=== PATIENT | female | born 1965 | race Hispanic/Latino ===

== ENCOUNTER 2021-04-24 14:38 | Inpatient (IN) | payer OTHER ==
[2021-04-24] MEDS ORDERED: dexAMETHasone 4 MG/ML VIAL IV ONE (17:03)
[2021-04-24] MEDS ORDERED: AZITHROMYCIN/NS 500 MG/250 ML 500 MG/250 ML BAG IV ONE (17:20)
--- NOTE | 2021-04-24 17:25 | XRay Report ---
CHEST 1 VIEW 04/24/2021 5:08 PM INDICATION / CLINICAL INFORMATION: SOB. COMPARISON: None available. FINDINGS: SUPPORT DEVICES: None. HEART / MEDIASTINUM: The heart size and pulmonary vasculature are normal for technique. LUNGS / PLEURA: There are moderate patchy parenchymal opacities throughout both lungs, predominantly in the mid to lower lung zones and more prominent peripherally. No definite pleural effusion. No pneu mothorax. ADDITIONAL FINDINGS: No significant additional findings. IMPRESSION: Moderate patchy peripheral parenchymal opacities bilaterally are nonspecific but likely r elated to atypical causes of pneumonia, especially viral pneumonia. Signer Name: Wilner Lopez MD Signed: 04/24/2021 5:21 PM Workstation Name: [id number]
[2021-04-24] MEDS ORDERED: SODIUM CHLORIDE 0.9% 1000 ML 1,000 ML IV ONE (17:41)
[2021-04-24] MEDS ORDERED: LORazepam 2 MG/ML VIAL IV ONE (17:42)
--- NOTE | 2021-04-24 17:49 | Emergency Department Report ---
HPI - General Chief Complaint: Dyspnea/Respdistress Time Seen by Provider: 04/24/21 16:59 - HPI HPI: 56-year-old female presents to the emergency department from home with complaint of a 2-week history of shortness of breath, mixed dry and productive cough, generalized weakness, fatigue and the patient is COVID-positive. Patient says that over the past few days she has been getting increased shortness of breath and dizziness/lightheadedness when she stands up. She has a history of COPD but is not oxygen dependent at home. She is a former smoker. The patient was found to have a room air oxygen saturation of 85%. She has been placed on supplemental oxygen at 4 L by nasal cannula and went up to about 95%. She has not taken anything for symptoms prior to presentation today. ED Past Medical Hx - Past Medical History Additional medical history: genital HERPES - Surgical History Additional Surgical History: stomach ulcer surgery,hernia surgery - Social History Smoking Status: Current Every Day Smoker Substance Use Type: None - Medications Home Medications: Home Medications Medication Instructions Recorded Confirmed Last Taken Type Valtrex 1 tab PO BID 01/15/15 01/15/15 01/14/15 History Ciprofloxacin HCl [Ciprofloxacin 500 mg PO Q12HR #20 tab 01/16/15 Unknown Rx TAB] Ondansetron [Zofran TAB] 4 mg PO Q8HR PRN #15 tablet 01/16/15 Unknown Rx Phenazopyridine [Pyridium] 100 mg PO TID PRN #6 tab 01/16/15 Unknown Rx ED Review of Systems ROS: Stated complaint: covid symptoms Other details as noted in HPI Comment: All other systems reviewed and negative Constitutional: chills, weakness Eyes: denies: eye pain, vision change ENT: denies: ear pain, throat pain Respiratory: cough, shortness of breath, SOB with exertion Cardiovascular: denies: chest pain, edema Gastrointestinal: denies: abdominal pain, vomiting Genitourinary: denies: dysuria, discharge Musculoskeletal: myalgia. denies: joint swelling Skin: denies: rash Neurological: other (Dizziness/lightheaded). denies: numbness, paresthesias Physical Exam - Physical Exam Vital Signs: Vital Signs 04/24/21 04/24/21 16:24 17:28 Temperature 97.8 F Pulse Rate 91 H Respiratory 16 Rate Blood Pressure 124/79 [Left] O2 Sat by Pulse 85 95 Oximetry Physical Exam: GENERAL: The patient is well-developed well-nourished. HENT: Normocephalic. Atraumatic. Patient has moist mucous membranes. EYES: Extraocular motions are intact. NECK: Supple. Trachea is midline. CHEST/LUNGS: Rhonchi heard bilaterally. There is tachypnea with some conversational dyspnea. HEART/CARDIOVASCULAR: Regular. There is mild tachycardia. There is no murmur. ABDOMEN: Abdomen is soft, nontender. Patient has normal bowel sounds. There is no abdominal distention. SKIN: Skin is warm and dry. NEURO: The patient is awake, alert, and cooperative. Normal speech. MUSCULOSKELETAL: There is no tenderness or deformity. There is no limitation range of motion. ED Course Vital Signs 04/24/21 04/24/21 16:24 17:28 Temperature 97.8 F Pulse Rate 91 H Respiratory 16 Rate Blood Pressure 124/79 [Left] O2 Sat by Pulse 85 95 Oximetry ED Medical Decision Making - Lab Data Result diagrams: 04/24/21 17:32 04/24/21 17:32 Lab Results 04/24/21 04/24/21 04/24/21 Range/Units 17:32 17:32 17:32 WBC 7.2 (4.5-11.0) K/mm3 RBC 3.40 L (3.65-5.03) M/mm3 Hgb 11.4 (10.1-14.3) gm/dl Hct 35.2 (30.3-42.9) % MCV 104 H (79-97) fl MCH 34 H (28-32) pg MCHC 33 (30-34) % RDW 14.0 (13.2-15.2) % Plt Count 438 (140-440) K/mm3 Lymph % (Auto) 17.1 (13.4-35.0) % [place] % (Auto) 4.1 (0.0-7.3) % Eos % (Auto) 1.1 (0.0-4.3) % Baso % (Auto) 0.8 (0.0-1.8) % Lymph # (Auto) 1.2 (1.2-5.4) K/mm3 [place] # (Auto) 0.3 (0.0-0.8) K/mm3 Eos # (Auto) 0.1 (0.0-0.4) K/mm3 Baso # (Auto) 0.1 (0.0-0.1) K/mm3 Seg Neutrophils % 76.9 H (40.0-70.0) % Seg Neutrophils # 5.5 (1.8-7.7) K/mm3 PT 13.5 (12.2-14.9) Sec. INR 0.93 (0.87-1.13) D-Dimer > 37215 H (0-234) ng/mlDDU Sodium 138 (137-145) mmol/L Potassium 3.7 (3.6-5.0) mmol/L Chloride 101.0 (98-107) mmol/L Carbon Dioxide 20 L (22-30) mmol/L Anion Gap 21 mmol/L BUN 17 (7-17) mg/dL Creatinine 1.3 H (0.6-1.2) mg/dL Estimated GFR 43 ml/min BUN/Creatinine Ratio 13 % Glucose 190 H (65-100) mg/dL Calcium 9.3 (8.4-10.2) mg/dL Ferritin (10.0-200.0) ng/mL Total Bilirubin 0.40 (0.1-1.2) mg/dL AST 33 (5-40) units/L ALT 72 H (7-56) units/L Alkaline Phosphatase 95 (35-129) units/L Lactate Dehydrogenase (91-180) units/L Troponin T < 0.010 (0.00-0.029) ng/mL C-Reactive Protein (0.00-1.30) mg/dL Total Protein 7.7 (6.3-8.2) g/dL Albumin 3.0 L (3.9-5) g/dL Albumin/Globulin Ratio 0.6 % 04/24/21 04/24/21 Range/Units 17:32 17:32 WBC (4.5-11.0) K/mm3 RBC (3.65-5.03) M/mm3 Hgb (10.1-14.3) gm/dl Hct (30.3-42.9) % MCV (79-97) fl MCH (28-32) pg MCHC (30-34) % RDW (13.2-15.2) % Plt Count (140-440) K/mm3 Lymph % (Auto) (13.4-35.0) % [place] % (Auto) (0.0-7.3) % Eos % (Auto) (0.0-4.3) % Baso % (Auto) (0.0-1.8) % Lymph # (Auto) (1.2-5.4) K/mm3 [place] # (Auto) (0.0-0.8) K/mm3 Eos # (Auto) (0.0-0.4) K/mm3 Baso # (Auto) (0.0-0.1) K/mm3 Seg Neutrophils % (40.0-70.0) % Seg Neutrophils # (1.8-7.7) K/mm3 PT (12.2-14.9) Sec. INR (0.87-1.13) D-Dimer (0-234) ng/mlDDU Sodium (137-145) mmol/L Potassium (3.6-5.0) mmol/L Chloride (98-107) mmol/L Carbon Dioxide (22-30) mmol/L Anion Gap mmol/L BUN (7-17) mg/dL Creatinine (0.6-1.2) mg/dL Estimated GFR ml/min BUN/Creatinine Ratio % Glucose (65-100) mg/dL Calcium (8.4-10.2) mg/dL Ferritin 380.7 H (10.0-200.0) ng/mL Total Bilirubin (0.1-1.2) mg/dL AST (5-40) units/L ALT (7-56) units/L Alkaline Phosphatase (35-129) units/L Lactate Dehydrogenase 408 H (91-180) units/L Troponin T (0.00-0.029) ng/mL C-Reactive Protein 8.80 H (0.00-1.30) mg/dL Total Protein (6.3-8.2) g/dL Albumin (3.9-5) g/dL Albumin/Globulin Ratio % - EKG Data -: EKG Interpreted by Ok EKG shows normal: sinus rhythm, axis, intervals, QRS complexes, ST-T waves (Nonspecific ST-T waves) Rate: normal - EKG Data When compared to previous EKG there are: previous EKG unavailable Interpretation: other (Sinus rhythm at 90 bpm, normal axis, normal intervals, nonspecific ST-T waves. No ST elevation SD) - Radiology Data Radiology results: image reviewed interpreted by me: Chest x-ray shows bilateral patchy infiltrates concerning for pneumonia. No p neumothorax. No widened mediastinum. - Medical Decision Making This patient presents to the emergency department with increased shortness of breath, dizziness and lightheadedness that worsens when standing up pulse ox of 85%. The patient was brought in and the patient is known to be COVID-positive. She presents to the emergency department with a room air to room #35 and placed on 4 L oxygen via nasal cannula and went up into the mid 90s. Chest x- ray shows bilateral patchy infiltrates consistent with COVID-pneumonia. The patient's labs also appear consistent with COVID as she has elevated inflammatory markers. She has been given a dose of Decadron, IV fluid resuscitation, IV steroids antibiotics. Patient will be admitted to the hospital for further evaluation and treatment and has been accepted for admission by the hospitalist, Dr. Bailon. Critical Care Time: Yes Critical care time in (mins) excluding proc time.: 35 Critical care attestation.: If time is entered above; I have spent that time in minutes in the direct care of this critically ill patient, excluding procedure time. Critical care time spent on this patient in doing her initial evaluation, multiple reevaluations, ordering and interpretation of labs and imaging, IV steroids, supplemental oxygen for her hypoxia, IV antibiotics, IV fluid resuscitation. Critical Care Time: 35 minutes ED Disposition Clinical Impression: COVID-19, Hypoxia Bilateral pneumonia Qualifiers: Pneumonia type: due to unspecified organism Lung location: unspecified part of lung Qualified Code(s): J18.9 - Pneumonia, unspecified organism Disposition: ADMITTED INPATIENT Is pt being admited?: Yes Condition: Serious Time of Disposition: 18:53
[2021-04-24 18:08] LABS: Basophils # (Auto) 0.1 K/mm3 (0.0-0.1); Basophils % (Auto) 0.8 % (0.0-1.8); Eosinophils # (Auto) 0.1 K/mm3 (0.0-0.4); Eosinophils % (Auto) 1.1 % (0.0-4.3); Hematocrit 35.2 % (30.3-42.9); Hemoglobin 11.4 gm/dl (10.1-14.3); Lymphocytes # (Auto) 1.2 K/mm3 (1.2-5.4); Lymphocytes % (Auto) 17.1 % (13.4-35.0); Mean Corpuscular HGB Conc 33 % (30-34); Mean Corpuscular Volume 104 fl (79-97); Monocytes # (Auto) 0.3 K/mm3 (0.0-0.8); Monocytes % (Auto) 4.1 % (0.0-7.3); Platelet Count 438 K/mm3 (140-440)
[2021-04-24 18:17] LABS: INR 0.93 (0.87-1.13)
[2021-04-24 18:29] LABS: Alanine Aminotransferase 72 units/L (7-56); BUN/Creatinine Ratio 13; Blood Urea Nitrogen 17 mg/dL (7-17); C-Reactive Protein 8.8 mg/dL (0.00-1.30); Calcium 9.3 mg/dL (8.4-10.2); Hemolysis Index 0
--- NOTE | 2021-04-24 21:42 | History and Physical Report ---
History of Present Illness Date of examination: 04/24/21 Date of admission: 04/24/21 18:53 Chief complaint: Shortness of breath for 1 week History of present illness: 55-year-old female with history of COPD comes in for 2-week history of shortness of breath and dry cough and generalized weakness and fatigue. Patient is apparently COVID-positive. Patient has been getting short of breath over the past few days and also dizziness and lightheadedness when she stands up. Patient has a history of COPD but not on any home oxygen. Former smoker. In the emergency room initial oxygen saturations were 85% on room air. With 4 L of nasal cannula oxygen saturations improved to 95%. No loss of smell or taste. Patient is unvaccinated. - Past Medical History --COPD --Recurrent genital herpes for which she takes Valtrex intermittently - Surgical History --Endometriosis and diverticulectomy - Social History Smoking Status: Former smoker 6 months ago Substance Use Type: None Family history Htn - Medications Home Medications: Home Medications Medication Instructions Recorded Confirmed Last Taken Type Valtrex 1 tab PO BID 01/15/15 01/15/15 01/14/15 History Ciprofloxacin HCl [Ciprofloxacin 500 mg PO Q12HR #20 tab 01/16/15 Unknown Rx TAB] Ondansetron [Zofran TAB] 4 mg PO Q8HR PRN #15 tablet 01/16/15 Unknown Rx Phenazopyridine [Pyridium] 100 mg PO TID PRN #6 tab 01/16/15 Unknown Rx Review of Systems ROS: Stated complaint: covid symptoms Other details as noted in HPI Comment: All other systems reviewed and negative Constitutional: chills, weakness Eyes: denies: eye pain, vision change ENT: denies: ear pain, throat pain Respiratory: cough, shortness of breath, SOB with exertion Cardiovascular: denies: chest pain, edema Gastrointestinal: denies: abdominal pain, vomiting Genitourinary: denies: dysuria, discharge Musculoskeletal: myalgia. denies: joint swelling Skin: denies: rash Neurological: other (Dizziness/lightheaded). denies: numbness, paresthesias Medications and Allergies Allergies Allergy/AdvReac Type Severity Reaction Status Date / Time cephalexin Allergy Anaphylaxis Verified 01/15/15 20:20 Sulfa (Sulfonamide Allergy Rash Verified 01/15/15 20:20 Antibiotics) Home Medications Medication Instructions Recorded Confirmed Last Taken Type Valtrex 1 tab PO BID 01/15/15 01/15/15 01/14/15 History Ciprofloxacin HCl [Ciprofloxacin 500 mg PO Q12HR #20 tab 01/16/15 Unknown Rx TAB] Ondansetron [Zofran TAB] 4 mg PO Q8HR PRN #15 tablet 01/16/15 Unknown Rx Phenazopyridine [Pyridium] 100 mg PO TID PRN #6 tab 01/16/15 Unknown Rx Active Meds: Active Medications Sodium Chloride (Nacl 0.9% 1000 Ml) 1,000 mls @ 125 mls/hr IV ONCE ONE Stop: 04/25/21 01:40 Last Admin: 04/24/21 18:14 Dose: 125 mls/hr Exam - Constitutional Vitals: Temp Pulse Resp BP Pulse Ox 98.7 F 89 30 H 128/80 91 04/24/21 18:00 04/24/21 19:15 04/24/21 19:15 04/24/21 19:15 04/24/21 19:15 General appearance: Present: mild distress, well-nourished - EENT Eyes: Present: PERRL ENT: hearing intact, clear oral mucosa - Neck Neck: Present: supple, normal ROM - Respiratory Respiratory effort: normal Respiratory: bilateral: CTA, rhonchi (Scattered) - Cardiovascular Heart rate: 88 Rhythm: regular Heart Sounds: Present: S1 & S2. Absent: rub, click - Extremities Extremities: pulses symmetrical, No edema Peripheral Pulses: within normal limits - Abdominal General gastrointestinal: Present: soft, non-tender, non-distended, normal bowel sounds Female genitourinary: Present: normal - Integumentary Integumentary: Present: clear, warm, dry - Musculoskeletal Musculoskeletal: gait normal, strength equal bilaterally - Psychiatric Psychiatric: appropriate mood/affect, intact judgment & insight - Neurologic Neurologic: CNII-XII intact, moves all extremities - Allied Health Allied health notes reviewed: nursing, case management HEART Score - HEART Score Troponin: Troponin T < 0.010 ng/mL (0.00-0.029) 04/24/21 17:32 Results - Labs CBC & Chem 7: 04/25/21 04:44 04/25/21 04:44 Labs: Laboratory Last Values WBC 7.2 K/mm3 (4.5-11.0) 04/24/21: RBC 3.40 M/mm3 (3.65-5.03) L 04/24/21: Hgb 11.4 gm/dl (10.1-14.3) 04/24/21: Hct 35.2 % (30.3-42.9) 04/24/21: MCV 104 fl (79-97) H 04/24/21: MCH 34 pg (28-32) H 04/24/21: MCHC 33 % (30-34) 04/24/21: RDW 14.0 % (13.2-15.2) 04/24/21: Plt Count 438 K/mm3 (140-440) 04/24/21: Lymph % (Auto) 17.1 % (13.4-35.0) 04/24/21: [place] % (Auto) 4.1 % (0.0-7.3) 04/24/21: Eos % (Auto) 1.1 % (0.0-4.3) 04/24/21: Baso % (Auto) 0.8 % (0.0-1.8) 04/24/21: Lymph # (Auto) 1.2 K/mm3 (1.2-5.4) 04/24/21: [place] # (Auto) 0.3 K/mm3 (0.0-0.8) 04/24/21: Eos # (Auto) 0.1 K/mm3 (0.0-0.4) 04/24/21: Baso # (Auto) 0.1 K/mm3 (0.0-0.1) 04/24/21: Seg Neutrophils % 76.9 % (40.0-70.0) H 04/24/21: Seg Neutrophils # 5.5 K/mm3 (1.8-7.7) 04/24/21: PT 13.5 Sec. (12.2-14.9) 04/24/21: INR 0.93 (0.87-1.13) 04/24/21: D-Dimer > 09794 ng/mlDDU (0-234) H 04/24/21 17:32 Sodium 138 mmol/L (137-145) 04/24/21 17:32 Potassium 3.7 mmol/L (3.6-5.0) 04/24/21 17:32 Chloride 101.0 mmol/L (98-107) 04/24/21 17:32 Carbon Dioxide 20 mmol/L (22-30) L 04/24/21 17:32 Anion Gap 21 mmol/L 04/24/21 17:32 BUN 17 mg/dL (7-17) 04/24/21 17:32 Creatinine 1.3 mg/dL (0.6-1.2) H 04/24/21 17:32 Estimated GFR 43 ml/min 04/24/21 17:32 BUN/Creatinine Ratio 13 % 04/24/21 17:32 Glucose 190 mg/dL (65-100) H 04/24/21 17:32 Calcium 9.3 mg/dL (8.4-10.2) 04/24/21 17:32 Ferritin 380.7 ng/mL (10.0-200.0) H 04/24/21 17:32 Total Bilirubin 0.40 mg/dL (0.1-1.2) 04/24/21 17:32 AST 33 units/L (5-40) 04/24/21 17:32 ALT 72 units/L (7-56) H 04/24/21 17:32 Alkaline Phosphatase 95 units/L (35-129) 04/24/21 17:32 Lactate Dehydrogenase 408 units/L (91-180) H 04/24/21 17:32 Troponin T < 0.010 ng/mL (0.00-0.029) 04/24/21 17:32 C-Reactive Protein 8.80 mg/dL (0.00-1.30) H 04/24/21 17:32 Total Protein 7.7 g/dL (6.3-8.2) 04/24/21 17:32 Albumin 3.0 g/dL (3.9-5) L 04/24/21 17:32 Albumin/Globulin Ratio 0.6 % 04/24/21 17:32 Microbiology: Microbiology 04/24/21 18:05 Peripheral/Venous Blood Culture - Preliminary Culture in Progress 04/24/21 17:32 Peripheral/Venous Blood Culture - Preliminary Culture in Progress - Imaging and Cardiology Chest x-ray: report reviewed Imaging and Cardiology: Chest x-ray Moderate patchy peripheral parenchymal opacities bilaterally are nonspecific but likely related to atypical causes of pneumonia especially viral pneumonia Assessment and Plan Advance Directives: Yes (Full code) VTE prophylaxis?: Chemical Plan of care discussed with patient/family: Yes - Patient Problems (1) Acute respiratory failure with hypoxia Current Visit: Yes Status: Acute Plan to address problem: Oxygen supplementation as necessary Patient on 4 L nasal cannula oxygen Respiratory therapy assessment and increased oxygen decrease oxygen as necessary (2) SIRS (systemic inflammatory response syndrome) Current Visit: Yes Status: Acute Plan to address problem: All inflammatory markers are elevated (3) Bilateral pneumonia Current Visit: Yes Status: Acute Qualifiers: Pneumonia type: due to unspecified organism Lung location: unspecified part of lung Qualified Code(s): J18.9 - Pneumonia, unspecified organism Plan to address problem: Patient initiated on IV ceftriaxone and IV Zithromax Also IV Decadron for possible COVID-pneumonia (4) Person under investigation for COVID-19 Current Visit: Yes Status: Acute Plan to address problem: Coronavirus PCR in a.m. IV Decadron 8 mg every 24 (5) MARTINA (acute kidney injury) Current Visit: Yes Status: Acute Plan to address problem: IV fluids for now Vasomotor nephropathy (6) COPD (chronic obstructive pulmonary disease) Current Visit: Yes Status: Chronic Qualifiers: Emphysema type: unspecified Plan to address problem: Not in exacerbation Combivent inhaler 2 puffs twice daily (7) Malnutrition Current Visit: Yes Status: Chronic Qualifiers: Protein-calorie malnutrition severity: moderate Plan to address problem: Patient initiated on dietary supplements (8) DVT prophylaxis Current Visit: Yes Status: Acute Plan to address problem: On anticoagulation GI prophylaxis (9) Advance care planning Current Visit: Yes Status: Acute Plan to address problem: Disease education conducted, care plan discussed, diagnosis discussed, prognosis discussed. Patient is full code. Patient acknowledges understanding and agreement with care plan. +30 minutes.
[2021-04-24] MEDS ORDERED: ONDANSETRON 4 MG/2 ML INJ IV PRN (21:47)
[2021-04-24] MEDS ORDERED: ACETAMINOPHEN 325 MG TAB PO PRN (21:47)
[2021-04-24] MEDS ORDERED: METOCLOPRAMIDE 10 MG/2 ML INJ IV PRN (21:49)
[2021-04-24] MEDS ORDERED: MORPHINE 2 MG/1 ML INJ IV PRN (21:49)
[2021-04-24] MEDS ORDERED: SODIUM CHLORIDE 0.9% 1000 ML 1,000 ML IV SCH (22:00)
[2021-04-25] MEDS: ENOXAPARIN 40 MG/0.4 ML INJ SUB-Q SCH ×2 (04:35→10:16)
[2021-04-25] MEDS: FAMOTIDINE 20 MG TAB PO SCH ×3 (04:35→23:24)
[2021-04-25] MEDS: cefTRIAXone/NS 2 GM/100 ML 2 GM/100 ML BAG IV SCH ×2 (04:35→10:03)
[2021-04-25 05:33] LABS: Basophils % (Auto) 0.5 % (0.0-1.8); Hematocrit 36.6 % (30.3-42.9); Lymphocytes # (Auto) 1.2 K/mm3 (1.2-5.4); Lymphocytes % (Auto) 13.5 % (13.4-35.0); Mean Corpuscular HGB Conc 33 % (30-34); Mean Corpuscular Volume 104 fl (79-97); Monocytes # (Auto) 0.4 K/mm3 (0.0-0.8); Platelet Count 475 K/mm3 (140-440); Red Blood Count 3.53 M/mm3 (3.65-5.03)
[2021-04-25 05:51] LABS: Albumin 3.4 g/dL (3.9-5); Calcium 9.3 mg/dL (8.4-10.2)
[2021-04-25] MEDS ORDERED: AZITHROMYCIN/NS 500 MG/250 ML 500 MG/250 ML BAG IV SCH (10:00)
[2021-04-25] MEDS: dexAMETHasone 4 MG/ML VIAL IV SCH (10:02)
--- NOTE | 2021-04-25 10:02 | Electrocardiograph Report ---
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
[2021-04-25] MEDS: TIOTROPIUM 18 MCG CAP INHALATION IH SCH (10:03)
[2021-04-25] MEDS: AZITHROMYCIN 250 MG TAB PO SCH (10:03)
[2021-04-25] MEDS ORDERED: LORazepam 2 MG/ML VIAL IV PRN (16:18)
--- NOTE | 2021-04-25 22:29 | Progress Note ---
Assessment and Plan - Patient Problems (1) Acute respiratory failure with hypoxia Current Visit: Yes Status: Acute Plan to address problem: Oxygen supplementation as necessary Patient on 4 L nasal cannula oxygen Respiratory therapy assessment and increased oxygen decrease oxygen as necessary (2) SIRS (systemic inflammatory response syndrome) Current Visit: Yes Status: Acute Plan to address problem: All inflammatory markers are elevated (3) Bilateral pneumonia Current Visit: Yes Status: Acute Qualifiers: Pneumonia type: due to unspecified organism Lung location: unspecified part of lung Qualified Code(s): J18.9 - Pneumonia, unspecified organism Plan to address problem: Patient is COVID-negative, Continue IV antibiotics (4) Person under investigation for COVID-19 Current Visit: Yes Status: Acute Plan to address problem: COVID-negative (5) MARTINA (acute kidney injury) Current Visit: Yes Status: Acute Plan to address problem: Improved (6) COPD (chronic obstructive pulmonary disease) Current Visit: Yes Status: Chronic Qualifiers: Emphysema type: unspecified Plan to address problem: Not in exacerbation Combivent inhaler 2 puffs twice daily (7) Malnutrition Current Visit: Yes Status: Chronic Qualifiers: Protein-calorie malnutrition severity: moderate Plan to address problem: Patient initiated on dietary supplements (8) DVT prophylaxis Current Visit: Yes Status: Acute Plan to address problem: On anticoagulation GI prophylaxis (9) Advance care planning Current Visit: Yes Status: Acute Plan to address problem: Disease education conducted, care plan discussed, diagnosis discussed, prognosis discussed. Patient is full code. Patient acknowledges understanding and agreement with care plan. +30 minutes. Subjective Date of service: 04/25/21 Principal diagnosis: Bilateral pneumonia Interval history: 55-year-old female with history of COPD comes in for 2-week history of shortness of breath and dry cough and generalized weakness and fatigue. Patient is apparently COVID-positive. Patient has been getting short of breath over the past few days and also dizziness and lightheadedness when she stands up. Patient has a history of COPD but not on any home oxygen. Former smoker. In the emergency room initial oxygen saturations were 85% on room air. With 4 L of nasal cannula oxygen saturations improved to 95%. No loss of smell or taste. Patient is unvaccinated. April 25, 2021 Patient is COVID-negative Shortness of breath better Objective - Constitutional Vitals: Vital Signs - 12hr 0104/25/21 04/25/21 10:30 10:45 11:00 Pulse Rate 73 70 72 Respiratory 20 20 21 Rate Blood Pressure 129/65 129/65 129/65 O2 Sat by Pulse 95 93 95 Oximetry 04/25/21 04/25/21 04/25/21 11:15 11:31 11:49 Pulse Rate 68 68 73 Respiratory 18 18 22 Rate Blood Pressure 134/77 134/77 134/77 O2 Sat by Pulse 97 100 95 Oximetry 04/25/21 04/25/21 04/25/21 12:00 12:15 12:31 Pulse Rate 72 71 74 Respiratory 20 18 19 Rate Blood Pressure 137/63 137/63 137/63 O2 Sat by Pulse 94 95 95 Oximetry 04/25/21 04/25/21 04/25/21 12:45 13:01 13:15 Pulse Rate 73 74 70 Respiratory 15 15 16 Rate Blood Pressure 137/63 123/66 123/66 O2 Sat by Pulse 97 96 97 Oximetry 04/25/21 04/25/21 04/25/21 13:31 13:45 14:01 Pulse Rate 75 74 71 Respiratory 20 20 18 Rate Blood Pressure 123/66 123/66 118/60 O2 Sat by Pulse 94 95 97 Oximetry 04/25/21 04/25/21 04/25/21 14:15 14:31 14:45 Pulse Rate 70 69 72 Respiratory 18 18 20 Rate Blood Pressure 118/60 118/60 118/60 O2 Sat by Pulse 95 97 94 Oximetry 04/25/21 04/25/21 04/25/21 15:01 15:15 15:31 Pulse Rate 73 72 67 Respiratory 21 19 16 Rate Blood Pressure 118/74 118/74 118/74 O2 Sat by Pulse 95 95 95 Oximetry 04/25/21 04/25/21 04/25/21 15:45 16:03 16:15 Pulse Rate 68 67 Respiratory 20 22 Rate Blood Pressure 118/74 118/74 118/74 O2 Sat by Pulse 97 88 93 Oximetry 04/25/21 04/25/21 16:31 16:45 Pulse Rate 75 70 Respiratory 23 18 Rate Blood Pressure 118/74 118/74 O2 Sat by Pulse 94 96 Oximetry General appearance: Present: no acute distress, well-nourished - EENT Eyes: PERRL, EOM intact ENT: hearing intact, clear oral mucosa Ears: bilateral: normal - Neck Neck: supple, normal ROM - Respiratory Respiratory effort: normal Respiratory: bilateral: diminished, rhonchi, wheezing - Breasts Breasts: normal - Cardiovascular Heart rate: 78 Rhythm: regular Heart Sounds: Present: S1 & S2. Absent: gallop, rub Extremities: pulses intact, No edema, normal color, Full ROM - Gastrointestinal General gastrointestinal: Present: soft, non-tender, non-distended, normal bowel sounds - Genitourinary Female genitourinary: normal - Integumentary Integumentary: clear, warm, dry - Musculoskeletal Musculoskeletal: 1, strength equal bilaterally - Neurologic Neurologic: moves all extremities - Psychiatric Psychiatric: memory intact, appropriate mood/affect, intact judgment & insight - Labs CBC & Chem 7: 04/25/21 04:44 04/25/21 04:44 Labs: Abnormal lab results 04/25/21 04/25/21 Range/Units 04:44 04:44 RBC 3.53 L (3.65-5.03) M/mm3 MCV 104 H (79-97) fl MCH 34 H (28-32) pg Plt Count 475 H (140-440) K/mm3 Seg Neutrophils % 82.0 H (40.0-70.0) % Potassium 5.3 H D (3.6-5.0) mmol/L BUN 18 H (7-17) mg/dL Glucose 176 H (65-100) mg/dL ALT 72 H (7-56) units/L Albumin 3.4 L (3.9-5) g/dL HEART Score - HEART Score Troponin: Troponin T < 0.010 ng/mL (0.00-0.029) 04/24/21 17:32
[2021-04-25] MEDS ORDERED: CALCIUM GLUCONATE 2,000 MG in SODIUM CHLORIDE 0.9% 100 ML IV ONE (23:32)
[2021-04-26] MEDS: cefTRIAXone/NS 2 GM/100 ML 2 GM/100 ML BAG IV SCH (09:53)
[2021-04-26] MEDS: dexAMETHasone 4 MG/ML VIAL IV SCH (09:53)
[2021-04-26] MEDS: AZITHROMYCIN 250 MG TAB PO SCH (09:54)
[2021-04-26] MEDS: FAMOTIDINE 20 MG TAB PO SCH ×2 (09:54→22:06)
[2021-04-26] MEDS: oxyCODONE /ACETAMINOPHEN 5-325MG TAB PO PRN (11:01)
[2021-04-26] MEDS ORDERED: PNEUMOCOCCAL 23 Valent 0.5 ML VIAL IM ONE (13:00)
[2021-04-26] MEDS: TIOTROPIUM 18 MCG CAP INHALATION IH SCH (17:36)
[2021-04-26] MEDS ORDERED: traZODone 100 MG TAB PO ONE (22:28)
--- NOTE | 2021-04-27 00:10 | Progress Note ---
Assessment and Plan - Patient Problems (1) Acute respiratory failure with hypoxia Current Visit: Yes Status: Acute Plan to address problem: Oxygen supplementation as necessary Patient on 4 L nasal cannula oxygen Respiratory therapy assessment and increased oxygen decrease oxygen as necessary (2) SIRS (systemic inflammatory response syndrome) Current Visit: Yes Status: Acute Plan to address problem: All inflammatory markers are elevated (3) Bilateral pneumonia Current Visit: Yes Status: Acute Qualifiers: Pneumonia type: due to unspecified organism Lung location: unspecified part of lung Qualified Code(s): J18.9 - Pneumonia, unspecified organism Plan to address problem: Patient is COVID-negative, Continue IV antibiotics (4) Person under investigation for COVID-19 Current Visit: Yes Status: Acute Plan to address problem: COVID-negative (5) MARTINA (acute kidney injury) Current Visit: Yes Status: Acute Plan to address problem: Improved (6) COPD (chronic obstructive pulmonary disease) Current Visit: Yes Status: Chronic Qualifiers: Emphysema type: unspecified Plan to address problem: Not in exacerbation Combivent inhaler 2 puffs twice daily (7) Malnutrition Current Visit: Yes Status: Chronic Qualifiers: Protein-calorie malnutrition severity: moderate Plan to address problem: Patient initiated on dietary supplements (8) DVT prophylaxis Current Visit: Yes Status: Acute Plan to address problem: On anticoagulation GI prophylaxis (9) Advance care planning Current Visit: Yes Status: Acute Plan to address problem: Disease education conducted, care plan discussed, diagnosis discussed, prognosis discussed. Patient is full code. Patient acknowledges understanding and agreement with care plan. +30 minutes. Subjective Date of service: 04/26/21 Principal diagnosis: Bilateral pneumonia Interval history: 55-year-old female with history of COPD comes in for 2-week history of shortness of breath and dry cough and generalized weakness and fatigue. Patient is apparently COVID-positive. Patient has been getting short of breath over the past few days and also dizziness and lightheadedness when she stands up. Patient has a history of COPD but not on any home oxygen. Former smoker. In the emergency room initial oxygen saturations were 85% on room air. With 4 L of nasal cannula oxygen saturations improved to 95%. No loss of smell or taste. Patient is unvaccinated. April 25, 2021 Patient is COVID-negative Shortness of breath better Objective - Constitutional Vitals: Vital Signs - 12hr 0104/26/21 04/26/21 12:11 12:21 12:22 Temperature Pulse Rate Respiratory 21 Rate Blood Pressure 124/63 124/63 Blood Pressure [Left] O2 Sat by Pulse 97 97 92 Oximetry 04/26/21 04/26/21 04/26/21 12:31 12:41 12:51 Temperature Pulse Rate Respiratory Rate Blood Pressure 124/63 124/63 124/63 Blood Pressure [Left] O2 Sat by Pulse 84 88 95 Oximetry 04/26/21 04/26/21 04/26/21 13:01 13:11 13:21 Temperature Pulse Rate Respiratory Rate Blood Pressure 124/63 124/63 124/63 Blood Pressure [Left] O2 Sat by Pulse 96 97 97 Oximetry 04/26/21 04/26/21 04/26/21 13:31 13:41 13:51 Temperature Pulse Rate Respiratory Rate Blood Pressure 124/63 124/63 124/63 Blood Pressure [Left] O2 Sat by Pulse 96 96 96 Oximetry 04/26/21 04/26/21 04/26/21 14:01 14:11 14:21 Temperature Pulse Rate Respiratory Rate Blood Pressure 124/63 124/63 124/63 Blood Pressure [Left] O2 Sat by Pulse 95 96 94 Oximetry 04/26/21 04/26/21 04/26/21 14:31 14:41 14:51 Temperature Pulse Rate Respiratory Rate Blood Pressure 124/63 124/63 124/63 Blood Pressure [Left] O2 Sat by Pulse 95 93 94 Oximetry 04/26/21 04/26/21 04/26/21 15:01 15:11 15:21 Temperature Pulse Rate Respiratory Rate Blood Pressure 124/63 124/63 124/63 Blood Pressure [Left] O2 Sat by Pulse 94 92 93 Oximetry 04/26/21 04/26/21 04/26/21 15:31 15:40 15:51 Temperature Pulse Rate Respiratory Rate Blood Pressure 124/63 124/63 124/63 Blood Pressure [Left] O2 Sat by Pulse 96 92 98 Oximetry 04/26/21 04/26/21 04/26/21 16:01 16:11 16:21 Temperature Pulse Rate Respiratory Rate Blood Pressure 124/63 124/63 124/63 Blood Pressure [Left] O2 Sat by Pulse 97 95 94 Oximetry 04/26/21 04/26/21 04/26/21 16:31 16:41 16:51 Temperature Pulse Rate Respiratory Rate Blood Pressure 124/63 124/63 124/63 Blood Pressure [Left] O2 Sat by Pulse 95 97 90 Oximetry 04/26/21 04/26/21 04/26/21 17:55 18:01 18:11 Temperature Pulse Rate Respiratory Rate Blood Pressure 124/63 124/63 124/63 Blood Pressure [Left] O2 Sat by Pulse 94 96 98 Oximetry 04/26/21 04/26/21 04/26/21 18:21 18:31 18:41 Temperature Pulse Rate Respiratory Rate Blood Pressure 124/63 124/63 124/63 Blood Pressure [Left] O2 Sat by Pulse 98 97 99 Oximetry 04/26/21 04/26/21 04/26/21 18:51 19:01 19:12 Temperature Pulse Rate Respiratory Rate Blood Pressure 124/63 124/63 124/63 Blood Pressure [Left] O2 Sat by Pulse 94 91 82 L Oximetry 04/26/21 04/26/21 04/26/21 19:13 19:21 19:31 Temperature Pulse Rate 55 L Respiratory 18 Rate Blood Pressure 124/63 124/63 Blood Pressure 155/82 [Left] O2 Sat by Pulse 92 92 94 Oximetry 04/26/21 04/26/21 04/26/21 19:41 19:51 20:01 Temperature Pulse Rate Respiratory Rate Blood Pressure 124/63 124/63 124/63 Blood Pressure [Left] O2 Sat by Pulse 93 91 93 Oximetry 04/26/21 04/26/21 04/26/21 20:11 20:21 20:31 Temperature Pulse Rate Respiratory Rate Blood Pressure 124/63 124/63 124/63 Blood Pressure [Left] O2 Sat by Pulse 95 95 94 Oximetry 04/26/21 04/26/21 21:02 22:37 Temperature 97.5 F L Pulse Rate 70 Respiratory 20 18 Rate Blood Pressure 132/77 Blood Pressure [Left] O2 Sat by Pulse 91 93 Oximetry General appearance: Present: no acute distress, well-nourished - EENT Eyes: PERRL, EOM intact ENT: hearing intact, clear oral mucosa Ears: bilateral: normal - Neck Neck: supple, normal ROM - Respiratory Respiratory effort: normal Respiratory: bilateral: CTA - Breasts Breasts: normal - Cardiovascular Rhythm: regular Heart Sounds: Present: S1 & S2. Absent: gallop, rub Extremities: pulses intact, No edema, normal color, Full ROM - Gastrointestinal General gastrointestinal: Present: soft, non-tender, non-distended, normal bowel sounds - Genitourinary Female genitourinary: normal - Integumentary Integumentary: clear, warm, dry - Musculoskeletal Musculoskeletal: 1, strength equal bilaterally - Neurologic Neurologic: moves all extremities - Psychiatric Psychiatric: memory intact, appropriate mood/affect, intact judgment & insight - Labs CBC & Chem 7: 04/25/21 04:44 04/25/21 04:44 HEART Score - HEART Score Troponin: Troponin T < 0.010 ng/mL (0.00-0.029) 04/24/21 17:32
[2021-04-27] MEDS: TIOTROPIUM 18 MCG CAP INHALATION IH SCH (09:14)
[2021-04-27] MEDS: DEXAMETHASONE 4 MG TAB PO SCH (10:32)
[2021-04-27] MEDS: cefTRIAXone/NS 2 GM/100 ML 2 GM/100 ML BAG IV SCH (12:19)
[2021-04-27] MEDS: AZITHROMYCIN 250 MG TAB PO SCH (12:19)
[2021-04-27] MEDS: FAMOTIDINE 20 MG TAB PO SCH ×2 (12:20→21:32)
[2021-04-27] MEDS: ENOXAPARIN 40 MG/0.4 ML INJ SUB-Q SCH (12:20)
[2021-04-27] MEDS: oxyCODONE /ACETAMINOPHEN 5-325MG TAB PO PRN (12:22)
[2021-04-27] MEDS: LORazepam 2 MG/ML VIAL IV PRN ×2 (17:32→23:59)
--- NOTE | 2021-04-28 07:49 | Progress Note ---
Assessment and Plan - Patient Problems (1) Acute respiratory failure with hypoxia Current Visit: Yes Status: Acute Plan to address problem: Oxygen supplementation as necessary Patient on 4 L nasal cannula oxygen Respiratory therapy assessment and increased oxygen decrease oxygen as necessary (2) SIRS (systemic inflammatory response syndrome) Current Visit: Yes Status: Acute Plan to address problem: All inflammatory markers are elevated (3) Bilateral pneumonia Current Visit: Yes Status: Acute Qualifiers: Pneumonia type: due to unspecified organism Lung location: unspecified part of lung Qualified Code(s): J18.9 - Pneumonia, unspecified organism Plan to address problem: Patient is COVID-negative, Continue IV antibiotics (4) Person under investigation for COVID-19 Current Visit: Yes Status: Acute Plan to address problem: COVID-negative (5) MARTINA (acute kidney injury) Current Visit: Yes Status: Acute Plan to address problem: Improved (6) COPD (chronic obstructive pulmonary disease) Current Visit: Yes Status: Chronic Qualifiers: Emphysema type: unspecified Plan to address problem: Not in exacerbation Combivent inhaler 2 puffs twice daily (7) Malnutrition Current Visit: Yes Status: Chronic Qualifiers: Protein-calorie malnutrition severity: moderate Plan to address problem: Patient initiated on dietary supplements (8) DVT prophylaxis Current Visit: Yes Status: Acute Plan to address problem: On anticoagulation GI prophylaxis (9) Advance care planning Current Visit: Yes Status: Acute Plan to address problem: Disease education conducted, care plan discussed, diagnosis discussed, prognosis discussed. Patient is full code. Patient acknowledges understanding and agreement with care plan. +30 minutes. 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 Patient is appar ently COVID-positive. Patient has been getting short of breath over the past few days and also dizziness and lightheadedness when she stands up. Patient has a history of COPD but not on any home oxygen. Former smoker. In the emergency room initial oxygen saturations were 85% on room air. With 4 L of nasal cannula oxygen saturations improved to 95%. No loss of smell or taste. Patient is unva ccinated. April 25, 2021 Patient is COVID-negative Shortness of breath better Objective - Constitutional Vitals: Vital Signs - 12hr 04/27/21 04/27/21 04/27/21 20:00 21:00 22:00 Temperature 97.1 F L Pulse Rate 71 81 Respiratory 22 20 Rate Blood Pressure Blood Pressure 127/80 [Left] O2 Sat by Pulse 92 92 Oximetry 04/27/21 04/28/21 04/28/21 23:26 03:17 04:00 Temperature 97.4 F L 98.1 F Pulse Rate 69 68 Respiratory 18 19 18 Rate Blood Pressure 113/61 103/68 Blood Pressure [Left] O2 Sat by Pulse 94 92 96 Oximetry - Labs CBC & Chem 7: 04/25/21 04:44 04/25/21 04:44 HEART Score - HEART Score Troponin: Troponin T < 0.010 ng/mL (0.00-0.029) 04/24/21 17:32
--- NOTE | 2021-04-28 07:54 | Event Note ---
Date: 04/28/21 Patient can be discharged if home oxygen at 3 L nasal cannula can be arranged Patient will need oxygen for long time Patient has post-COVID syndrome
[2021-04-28] MEDS: TIOTROPIUM 18 MCG CAP INHALATION IH SCH (09:52)
[2021-04-28] MEDS: ENOXAPARIN 40 MG/0.4 ML INJ SUB-Q SCH ×2 (10:32→12:51)
[2021-04-28] MEDS: FAMOTIDINE 20 MG TAB PO SCH ×2 (12:51→21:26)
[2021-04-28] MEDS: cefTRIAXone/NS 2 GM/100 ML 2 GM/100 ML BAG IV SCH (12:51)
[2021-04-28] MEDS: DEXAMETHASONE 4 MG TAB PO SCH (12:51)
[2021-04-28] MEDS: AZITHROMYCIN 250 MG TAB PO SCH (12:52)
[2021-04-28] MEDS: LORazepam 2 MG/ML VIAL IV PRN (21:26)
[2021-04-28] MEDS: oxyCODONE /ACETAMINOPHEN 5-325MG TAB PO PRN (21:26)
[2021-04-29] MEDS: TIOTROPIUM 18 MCG CAP INHALATION IH SCH (09:27)
[2021-04-29] MEDS: DEXAMETHASONE 4 MG TAB PO SCH (12:02)
[2021-04-29] MEDS: FAMOTIDINE 20 MG TAB PO SCH ×2 (12:02→22:14)
[2021-04-29] MEDS: ENOXAPARIN 40 MG/0.4 ML INJ SUB-Q SCH (12:02)
[2021-04-29] MEDS: oxyCODONE /ACETAMINOPHEN 5-325MG TAB PO PRN (12:05)
[2021-04-29] MEDS: LORazepam 2 MG/ML VIAL IV PRN ×2 (17:35→22:14)
--- NOTE | 2021-04-29 23:28 | Progress Note ---
Assessment and Plan - Patient Problems (1) Acute respiratory failure with hypoxia Current Visit: Yes Status: Acute Plan to address problem: Oxygen supplementation as necessary Patient on 4 L nasal cannula oxygen Respiratory therapy assessment and increased oxygen decrease oxygen as necessary (2) SIRS (systemic inflammatory response syndrome) Current Visit: Yes Status: Acute Plan to address problem: All inflammatory markers are elevated (3) Bilateral pneumonia Current Visit: Yes Status: Acute Qualifiers: Pneumonia type: due to unspecified organism Lung location: unspecified part of lung Qualified Code(s): J18.9 - Pneumonia, unspecified organism Plan to address problem: Patient is COVID-negative, Continue IV antibiotics (4) Person under investigation for COVID-19 Current Visit: Yes Status: Acute Plan to address problem: COVID-negative (5) MARTINA (acute kidney injury) Current Visit: Yes Status: Acute Plan to address problem: Improved (6) COPD (chronic obstructive pulmonary disease) Current Visit: Yes Status: Chronic Qualifiers: Emphysema type: unspecified Plan to address problem: Not in exacerbation Combivent inhaler 2 puffs twice daily (7) Malnutrition Current Visit: Yes Status: Chronic Qualifiers: Protein-calorie malnutrition severity: moderate Plan to address problem: Patient initiated on dietary supplements (8) DVT prophylaxis Current Visit: Yes Status: Acute Plan to address problem: On anticoagulation GI prophylaxis (9) Advance care planning Current Visit: Yes Status: Acute Plan to address problem: Disease education conducted, care plan discussed, diagnosis discussed, prognosis discussed. Patient is full code. Patient acknowledges understanding and agreement with care plan. +30 minutes. 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 Patient is appar ently COVID-positive. Patient has been getting short of breath over the past few days and also dizziness and lightheadedness when she stands up. Patient has a history of COPD but not on any home oxygen. Former smoker. In the emergency room initial oxygen saturations were 85% on room air. With 4 L of nasal cannula oxygen saturations improved to 95%. No loss of smell or taste. Patient is unva ccinated. April 25, 2021 Patient is COVID-negative Shortness of breath better Objective - Constitutional Vitals: Vital Signs - 12hr 04/29/21 04/29/21 17:02 19:41 Temperature 98.6 F 98.0 F Pulse Rate 78 82 Respiratory 18 14 Rate Blood Pressure 154/86 104/55 O2 Sat by Pulse 91 92 Oximetry General appearance: Present: no acute distress, well-nourished - EENT Eyes: PERRL, EOM intact ENT: hearing intact, clear oral mucosa Ears: bilateral: normal - Neck Neck: supple, normal ROM - Respiratory Respiratory effort: normal Respiratory: bilateral: CTA - Breasts Breasts: normal - Cardiovascular Rhythm: regular Heart Sounds: Present: S1 & S2. Absent: gallop, rub Extremities: pulses intact, No edema, normal color, Full ROM - Gastrointestinal General gastrointestinal: Present: soft, non-tender, non-distended, normal bowel sounds - Genitourinary Female genitourinary: normal - Integumentary Integumentary: clear, warm, dry - Musculoskeletal Musculoskeletal: 1, strength equal bilaterally - Neurologic Neurologic: moves all extremities - Psychiatric Psychiatric: memory intact, appropriate mood/affect, intact judgment & insight - Labs CBC & Chem 7: 04/25/21 04:44 04/25/21 04:44 HEART Score - HEART Score Troponin: Troponin T < 0.010 ng/mL (0.00-0.029) 04/24/21 17:32
[2021-04-30 06:27] LABS: Basophils # (Auto) 0.1 K/mm3 (0.0-0.1); Basophils % (Auto) 0.9 % (0.0-1.8); Eosinophils % (Auto) 0.3 % (0.0-4.3); Hematocrit 33.9 % (30.3-42.9); Hemoglobin 11.5 gm/dl (10.1-14.3); Lymphocytes # (Auto) 1.2 K/mm3 (1.2-5.4); Lymphocytes % (Auto) 12.7 % (13.4-35.0); Mean Corpuscular HGB Conc 34 % (30-34); Mean Corpuscular Volume 102 fl (79-97); Monocytes # (Auto) 0.5 K/mm3 (0.0-0.8); Monocytes % (Auto) 5.3 % (0.0-7.3); Platelet Count 440 K/mm3 (140-440); Red Blood Count 3.31 M/mm3 (3.65-5.03); Red Cell Distribution Width 13.9 % (13.2-15.2)
[2021-04-30 06:43] LABS: Calcium 8.4 mg/dL (8.4-10.2)
[2021-04-30] MEDS: TIOTROPIUM 18 MCG CAP INHALATION IH SCH (10:18)
[2021-04-30] MEDS: DEXAMETHASONE 4 MG TAB PO SCH (12:45)
[2021-04-30] MEDS: FAMOTIDINE 20 MG TAB PO SCH ×2 (12:46→22:58)
[2021-04-30] MEDS: ENOXAPARIN 40 MG/0.4 ML INJ SUB-Q SCH (12:46)
[2021-04-30] MEDS: oxyCODONE /ACETAMINOPHEN 5-325MG TAB PO PRN (18:38)
[2021-04-30] MEDS: LORazepam 2 MG/ML VIAL IV PRN (22:54)
[2021-05-01] MEDS: oxyCODONE /ACETAMINOPHEN 5-325MG TAB PO PRN ×3 (08:08→21:32)
[2021-05-01] MEDS: TIOTROPIUM 18 MCG CAP INHALATION IH SCH (09:37)
[2021-05-01] MEDS: ENOXAPARIN 40 MG/0.4 ML INJ SUB-Q SCH (09:45)
[2021-05-01] MEDS: LORazepam 2 MG/ML VIAL IV PRN ×2 (09:45→18:16)
[2021-05-01] MEDS: DEXAMETHASONE 4 MG TAB PO SCH (09:45)
[2021-05-01] MEDS: FAMOTIDINE 20 MG TAB PO SCH ×2 (14:54→21:32)
--- NOTE | 2021-05-02 02:25 | Progress Note ---
Assessment and Plan - Patient Problems (1) Acute respiratory failure with hypoxia Current Visit: Yes Status: Acute Plan to address problem: Oxygen supplementation as necessary Patient on 4 L nasal cannula oxygen Respiratory therapy assessment and increased oxygen decrease oxygen as necessary (2) SIRS (systemic inflammatory response syndrome) Current Visit: Yes Status: Acute Plan to address problem: All inflammatory markers are elevated (3) Bilateral pneumonia Current Visit: Yes Status: Acute Qualifiers: Pneumonia type: due to unspecified organism Lung location: unspecified part of lung Qualified Code(s): J18.9 - Pneumonia, unspecified organism Plan to address problem: Patient is COVID-negative, Continue IV antibiotics (4) Person under investigation for COVID-19 Current Visit: Yes Status: Acute Plan to address problem: COVID-negative (5) MARTINA (acute kidney injury) Current Visit: Yes Status: Acute Plan to address problem: Improved (6) COPD (chronic obstructive pulmonary disease) Current Visit: Yes Status: Chronic Qualifiers: Emphysema type: unspecified Plan to address problem: Not in exacerbation Combivent inhaler 2 puffs twice daily (7) Malnutrition Current Visit: Yes Status: Chronic Qualifiers: Protein-calorie malnutrition severity: moderate Plan to address problem: Patient initiated on dietary supplements (8) DVT prophylaxis Current Visit: Yes Status: Acute Plan to address problem: On anticoagulation GI prophylaxis (9) Advance care planning Current Visit: Yes Status: Acute Plan to address problem: Disease education conducted, care plan discussed, diagnosis discussed, prognosis discussed. Patient is full code. Patient acknowledges understanding and agreement with care plan. +30 minutes. (10) Post-COVID syndrome Current Visit: Yes Status: Acute Plan to address problem: Patient needs home oxygen Can be discharged if home oxygen is advanced at 3 L nasal cannula Subjective Date of service: 04/30/21 Principal diagnosis: Bilateral pneumonia Interval history: 55-year-old female with history of COPD comes in for 2-week history of shortness of breath and dry cough and generalized weakness and fatigue. Patient is appar ently COVID-positive. Patient has been getting short of breath over the past few days and also dizziness and lightheadedness when she stands up. Patient has a history of COPD but not on any home oxygen. Former smoker. In the emergency room initial oxygen saturations were 85% on room air. With 4 L of nasal cannula oxygen saturations improved to 95%. No loss of smell or taste. Patient is unva ccinated. April 25, 2021 Patient is COVID-negative Shortness of breath better Objective - Constitutional Vitals: Vital Signs - 12hr 05/01/21 05/01/21 05/02/21 16:48 19:53 00:39 Temperature 97.7 F 97.2 F L 97.8 F Pulse Rate 69 74 65 Respiratory 18 18 18 Rate Blood Pressure 107/55 123/75 125/83 O2 Sat by Pulse 92 92 92 Oximetry General appearance: Present: no acute distress, well-nourished - EENT Eyes: PERRL, EOM intact ENT: hearing intact, clear oral mucosa Ears: bilateral: normal - Neck Neck: supple, normal ROM - Respiratory Respiratory effort: normal Respiratory: bilateral: CTA - Breasts Breasts: normal - Cardiovascular Rhythm: regular Heart Sounds: Present: S1 & S2. Absent: gallop, rub Extremities: pulses intact, No edema, normal color, Full ROM - Gastrointestinal General gastrointestinal: Present: soft, non-tender, non-distended, normal bowel sounds - Genitourinary Female genitourinary: normal - Integumentary Integumentary: clear, warm, dry - Musculoskeletal Musculoskeletal: 1, strength equal bilaterally - Neurologic Neurologic: moves all extremities - Psychiatric Psychiatric: memory intact, appropriate mood/affect, intact judgment & insight - Labs CBC & Chem 7: 04/30/21 06:05 04/30/21 06:05 HEART Score - HEART Score Troponin: Troponin T < 0.010 ng/mL (0.00-0.029) 04/24/21 17:32
[2021-05-02] MEDS: oxyCODONE /ACETAMINOPHEN 5-325MG TAB PO PRN ×3 (06:36→21:43)
[2021-05-02] MEDS: TIOTROPIUM 18 MCG CAP INHALATION IH SCH (08:51)
[2021-05-02] MEDS: FAMOTIDINE 20 MG TAB PO SCH ×2 (10:17→21:42)
[2021-05-02] MEDS: ENOXAPARIN 40 MG/0.4 ML INJ SUB-Q SCH (10:17)
[2021-05-02] MEDS: DEXAMETHASONE 4 MG TAB PO SCH (10:17)
[2021-05-02] MEDS: LORazepam 2 MG/ML VIAL IV PRN ×2 (10:29→21:42)
--- NOTE | 2021-05-03 08:14 | Progress Note ---
Assessment and Plan - Patient Problems (1) Post-COVID syndrome Current Visit: Yes Status: Acute Plan to address problem: Patient needs home oxygen Can be discharged if home oxygen is advanced at 3 L nasal cannula (2) Acute respiratory failure with hypoxia Current Visit: Yes Status: Acute Plan to address problem: Oxygen supplementation as necessary Patient on 4L nasal cannula oxygen Respiratory therapy assessment and increased oxygen decrease oxygen as necessary Patient has post-COVID syndrome Needs home oxygen for at least next 6 months (3) SIRS (systemic inflammatory response syndrome) Current Visit: Yes Status: Acute Plan to address problem: All inflammatory markers are elevated (4) Bilateral pneumonia Current Visit: Yes Status: Acute Qualifiers: Pneumonia type: due to unspecified organism Lung location: unspecified part of lung Qualified Code(s): J18.9 - Pneumonia, unspecified organism Plan to address problem: Patient is COVID-negative, DisContinue IV antibiotics (5) Person under investigation for COVID-19 Current Visit: Yes Status: Acute Plan to address problem: COVID-negative (6) MARTINA (acute kidney injury) Current Visit: Yes Status: Acute Plan to address problem: Improved (7) COPD (chronic obstructive pulmonary disease) Current Visit: Yes Status: Chronic Qualifiers: Emphysema type: unspecified Plan to address problem: Not in exacerbation Combivent inhaler 2 puffs twice daily (8) Malnutrition Current Visit: Yes Status: Chronic Qualifiers: Protein-calorie malnutrition severity: moderate Plan to address problem: Patient initiated on dietary supplements (9) DVT prophylaxis Current Visit: Yes Status: Acute Plan to address problem: On anticoagulation GI prophylaxis (10) Advance care planning Current Visit: Yes Status: Acute Plan to address problem: Disease education conducted, care plan discussed, diagnosis discussed, prognosis discussed. Patient is full code. Patient acknowledges understanding and agreement with care plan. +30 minutes. (11) Discharge planning issues Current Visit: Yes Status: Acute Plan to address problem: Patient can be discharged on 2 L nasal cannula home oxygen actually 2 to 3 L Patient was intubated for home oxygen Discussed with case management Subjective Date of service: 05/02/21 Principal diagnosis: Bilateral pneumonia, respiratory failure with hypoxia Interval history: 55-year-old female with history of COPD comes in for 2-week history of shortness of breath and dry cough and generalized weakness and fatigue. Patient is apparently COVID-positive. Patient has been getting short of breath over the past few days and also dizziness and lightheadedness when she stands up. Patient has a history of COPD but not on any home oxygen. Former smoker. In the emergency room initial oxygen saturations were 85% on room air. With 4 L of nasal cannula oxygen saturations improved to 95%. No loss of smell or taste. Patient is unvaccinated. May 02, 2021 Patient is COVID-negative Shortness of breath better Patient has post-COVID syndrome Needs home oxygen Home oxygen being arranged Decreased oxygen to 2 L today If patient tolerates 2 L patient can be discharged on home oxygen Patient willing to pay for home oxygen Discussed with case management Objective - Constitutional Vitals: Vital Signs - 12hr 05/02/21 05/02/21 05/03/21 22:00 23:36 03:42 Temperature 97.2 F L 97.9 F Pulse Rate 80 68 Respiratory 20 19 Rate Blood Pressure 142/90 143/87 O2 Sat by Pulse 94 89 90 Oximetry General appearance: Present: mild distress, well-nourished - EENT Eyes: PERRL, EOM intact ENT: hearing intact, clear oral mucosa Ears: bilateral: normal - Neck Neck: supple, normal ROM - Respiratory Respiratory effort: normal Respiratory: bilateral: CTA - Breasts Breasts: normal - Cardiovascular Heart rate: 76 Rhythm: regular Heart Sounds: Present: S1 & S2. Absent: gallop, rub Extremities: pulses intact, No edema, normal color, Full ROM - Gastrointestinal General gastrointestinal: Present: soft, non-tender, non-distended, normal bowel sounds - Genitourinary Female genitourinary: normal - Integumentary Integumentary: clear, warm, dry - Musculoskeletal Musculoskeletal: 1, strength equal bilaterally - Neurologic Neurologic: moves all extremities - Psychiatric Psychiatric: memory intact, appropriate mood/affect, intact judgment & insight - Labs CBC & Chem 7: 04/30/21 06:05 04/30/21 06:05 HEART Score - HEART Score Troponin: Troponin T < 0.010 ng/mL (0.00-0.029) 04/24/21 17:32
[2021-05-03] MEDS: oxyCODONE /ACETAMINOPHEN 5-325MG TAB PO PRN ×3 (08:52→21:43)
[2021-05-03] MEDS: LORazepam 2 MG/ML VIAL IV PRN ×3 (09:00→21:43)
[2021-05-03] MEDS: DEXAMETHASONE 4 MG TAB PO SCH (09:00)
[2021-05-03] MEDS: FAMOTIDINE 20 MG TAB PO SCH ×2 (09:00→21:43)
[2021-05-03] MEDS: ENOXAPARIN 40 MG/0.4 ML INJ SUB-Q SCH (09:00)
[2021-05-03] MEDS: TIOTROPIUM 18 MCG CAP INHALATION IH SCH (09:20)
--- NOTE | 2021-05-03 10:57 | Progress Note ---
Assessment and Plan Assessment and plan: Acute hypoxic respiratory failure COVID-19 pneumonia. Patient reportedly with outpatient positive COVID test. Elevated D-dimer Bilateral pneumonia Acute kidney injury. 05/03/2021. Patient with significantly elevated D-dimer. We will check a CTA of the chest. Continue to wean oxygen to potential level of 2 L prior to discharge History Interval history: No new issues overnight. Hospitalist Physical - Constitutional Vitals: Temp Pulse Resp BP Pulse Ox 97.9 F 94 H 18 143/87 93 05/03/21 03:42 05/03/21 09:20 05/03/21 09:20 05/03/21 03:42 05/03/21 08:44 General appearance: Present: mild distress, well-nourished - EENT Eyes: Present: PERRL, EOM intact ENT: hearing intact, clear oral mucosa, dentition normal - Neck Neck: Present: supple, normal ROM - Respiratory Respiratory effort: normal Respiratory: bilateral: CTA - Cardiovascular Rhythm: regular Heart Sounds: Present: S1 & S2. Absent: gallop, rub - Extremities Extremities: no ischemia, No edema, Full ROM - Abdominal General gastrointestinal: soft, non-tender, non-distended, normal bowel sounds - Integumentary Integumentary: Present: clear, warm, dry - Neurologic Neurologic: CNII-XII intact, moves all extremities HEART Score - HEART Score Troponin: Troponin T < 0.010 ng/mL (0.00-0.029) 04/24/21 17:32 Results - Labs CBC & Chem 7: 04/30/21 06:05 04/30/21 06:05 Labs: Laboratory Last Values WBC 9.7 K/mm3 (4.5-11.0) 04/30/21 06:05 RBC 3.31 M/mm3 (3.65-5.03) L 04/30/21 06:05 Hgb 11.5 gm/dl (10.1-14.3) 04/30/21 06:05 Hct 33.9 % (30.3-42.9) 04/30/21 06:05 MCV 102 fl (79-97) H 04/30/21 06:05 MCH 35 pg (28-32) H 04/30/21 06:05 MCHC 34 % (30-34) 04/30/21 06:05 RDW 13.9 % (13.2-15.2) 04/30/21 06:05 Plt Count 440 K/mm3 (140-440) 04/30/21 06:05 Lymph % (Auto) 12.7 % (13.4-35.0) L 04/30/21 06:05 [place] % (Auto) 5.3 % (0.0-7.3) 04/30/21 06:05 Eos % (Auto) 0.3 % (0.0-4.3) 04/30/21 06:05 Baso % (Auto) 0.9 % (0.0-1.8) 04/30/21 06:05 Lymph # (Auto) 1.2 K/mm3 (1.2-5.4) 04/30/21 06:05 [place] # (Auto) 0.5 K/mm3 (0.0-0.8) 04/30/21 06:05 Eos # (Auto) 0.0 K/mm3 (0.0-0.4) 04/30/21 06:05 Baso # (Auto) 0.1 K/mm3 (0.0-0.1) 04/30/21 06:05 Seg Neutrophils % 80.8 % (40.0-70.0) H 04/30/21 06:05 Seg Neutrophils # 7.8 K/mm3 (1.8-7.7) H 04/30/21 06:05 PT 13.5 Sec. (12.2-14.9) 04/24/21 17:32 INR 0.93 (0.87-1.13) 04/24/21 17:32 D-Dimer > 88254 ng/mlDDU (0-234) H 04/24/21 17:32 Sodium 139 mmol/L (137-145) 04/30/21 06:05 Potassium 4.5 mmol/L (3.6-5.0) 04/30/21 06:05 Chloride 106.0 mmol/L (98-107) 04/30/21 06:05 Carbon Dioxide 21 mmol/L (22-30) L 04/30/21 06:05 Anion Gap 17 mmol/L 04/30/21 06:05 BUN 19 mg/dL (7-17) H 04/30/21 06:05 Creatinine 1.0 mg/dL (0.6-1.2) 04/30/21 06:05 Estimated GFR 58 ml/min 04/30/21 06:05 BUN/Creatinine Ratio 19 % 04/30/21 06:05 Glucose 147 mg/dL (65-100) H 04/30/21 06:05 Calcium 8.4 mg/dL (8.4-10.2) 04/30/21 06:05 Ferritin 380.7 ng/mL (10.0-200.0) H 04/24/21 17:32 Total Bilirubin 0.30 mg/dL (0.1-1.2) 04/25/21 04:44 AST 32 units/L (5-40) 04/25/21 04:44 ALT 72 units/L (7-56) H 04/25/21 04:44 Alkaline Phosphatase 99 units/L (35-129) 04/25/21 04:44 Lactate Dehydrogenase 408 units/L (91-180) H 04/24/21 17:32 Troponin T < 0.010 ng/mL (0.00-0.029) 04/24/21 17:32 C-Reactive Protein 8.80 mg/dL (0.00-1.30) H 04/24/21 17:32 Total Protein 7.5 g/dL (6.3-8.2) 04/25/21 04:44 Albumin 3.4 g/dL (3.9-5) L 04/25/21 04:44 Albumin/Globulin Ratio 0.8 % 04/25/21 04:44 Procalcitonin 0.05 ng/mL (<0.15) 04/24/21 17:32 Coronavirus (PCR) Negative (Negative) 04/25/21 Unknown Ruiz/IV: Voiding Method Toilet Active Medications - Current Medications Current Medications: Generic Name Dose Route Start Last Admin Trade Name Freq PRN Reason Stop Dose Admin Acetaminophen 650 mg 04/24/21 21:47 Acetaminophen 325 Mg Tab PO Q4H PRN Pain MILD(1-3)/Fever >100.5/RONDON Dexamethasone 8 mg 04/27/21 10:00 05/03/21 09:00 Dexamethasone 4 Mg Tab PO 05/03/21 10:59 8 mg DAILY TOM Administration Enoxaparin Sodium 40 mg 04/24/21 22:00 05/03/21 09:00 Enoxaparin 40 Mg/0.4 Ml Inj SUB-Q 40 mg QDAY TOM Administration Famotidine 20 mg 04/24/21 22:00 05/03/21 09:00 Famotidine 20 Mg Tab PO 20 mg BID TOM Administration Lorazepam 0.5 mg 04/27/21 16:53 05/03/21 09:00 Lorazepam 2 Mg/Ml Vial IV 0.5 mg Q4H PRN Administration Anxiety Metoclopramide HCl 10 mg 04/24/21 21:49 Metoclopramide 10 Mg/2 Ml Inj IV Q6H PRN Nausea And Vomiting Morphine Sulfate 2 mg 04/24/21 21:49 04/28/21 12:52 Morphine 2 Mg/1 Ml Inj IV 2 mg Q4H PRN Administration Pain, Moderate (4-6) Ondansetron HCl 4 mg 04/24/21 21:47 Ondansetron 4 Mg/2 Ml Inj IV Q8H PRN Nausea And Vomiting Oxycodone/Acetaminophen 1 tab 04/24/21 21:49 05/03/21 08:52 Oxycodone /Acetaminophen 5-325mg Tab PO 1 tab Q6H PRN Administration Pain, Moderate (4-6) Sodium Chloride 10 ml 04/24/21 22:00 05/03/21 09:00 Sodium Chloride 0.9% 10 Ml Flush Syringe IV 10 ml BID TOM Administration Sodium Chloride 10 ml 04/24/21 21:47 05/02/21 10:30 Sodium Chloride 0.9% 10 Ml Flush Syringe IV 10 ml PRN PRN Administration LINE FLUSH Tiotropium [place] 1 puff 04/25/21 09:00 05/03/21 09:20 Tiotropium 18 Mcg Cap Inhalation IH 1 puff Q24HRT TOM Administration Nutrition/Malnutrition Assess - Dietary Evaluation Nutrition/Malnutrition Findings: Nutrition Notes Start: 04/25/21 15:59 Freq: Status: Active Protocol: Document 05/01/21 16:12 EUSEBIA (Rec: 05/01/21 16:15 EUSEBIA [id number]) Nutrition Notes Initial or Follow up Reassessment Current Diagnosis Acute Kidney Injury,COPD, Respiratory Failure Other Pertinent Diagnosis 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 Current Diet Regular Diet (since B 04/25), D Suppl (L 04/25). Labs/Tests 04/30: CO2 21, BUN 19, Glu 147 . Pertinent Medications 05/01: Nutritionally unremarkable. Height 5 ft 8 in Weight 121 kg [place] Body Weight (kg) 63.63 BMI 40.5 Weight change and time frame 1.26 Kg body weight gained in 1 week reported. Weight Status Morbidly Obese Subjective/Other Information RD consult for routine F/U on Dietary assessment. Pt's PO intake of meals has been Good (100%), according to ADL notes. Dietary Supplements discontinued. 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 Pt to be discharged if home 3L O2 nasal cannula can be arranged, according to Progress notes. Percent of energy/protein needs met: Prescribed Regular Diet provides for energy/protein needs (2,289 Kcal/89 g) during LOS. Burn Absent Trauma Absent GI Symptoms None Food Allergy No Skin Integrity/Comment Clear, warm, dry. Current % PO Good (75-100%) Minimum of two criteria No #1 Nutrition Diagnosis Inadequate protein-energy intake Comments: Pt's PO intake of meals has been Good (100%), according to ADL notes. Diagnosis Progress(for reassessment Resolved documentation) Is patient on ventilator? No Is Patient Ambulatory and/or Out of Bed Yes REE-([place]-ambulatory/OOB) [ 2409.550 NUTR.MSJOOB] Kcal/Kg value to use for calculation 13 Approximate Energy Requirements Using 1573 kcal/Kg Calculation Used for Recommendations Kcal/kg Additional Notes 15-20 Kcal/Kg ABW (70-80% of EEN). Protein: 1.3 g/Kg; 121 g/day. Fluids: 1 ml/Kcal, or as per MD. Nutrition Intervention Change Diet Order: Continue Regular Diet. Add Supplement/Snack (indicate name/kcal d/c. /protein ) Goal #1 Maintain body weight within +/ -3% of admission body weight during LOS. Follow-Up By: 05/08/21 Additional Comments Continue monitoring food tolerance, %PO intake of meals , and BM.
--- NOTE | 2021-05-03 14:06 | Cat Scan Report ---
CTA CHEST WITH CONTRAST INDICATION : elevated d-dimer, hypoxia 100 ML OMNI 350 . TECHNIQUE: Axial imaging performed through the chest, with contrast bolus timing set to maximize opa cification of the pulmonary arteries. Sagittal and coronal reformatted images. 3-plane MIP reformatte d images were obtained. All CT scans at this location are performed using CT dose reduction for ALAR A by means of automated exposure control. 100 mL of intravenous contrast administered. COMPARISON: AP chest 04/24/2021 FINDINGS: Bolus: Contrast bolus timing is adequate. PTE: Nonocclusive pulmonary emboli are identified in the distal right main pulmonary artery extendin g to the first and second order branches leading to the right upper lobe and right lower lobe. No obv ious emboli on the left side. Mediastinum: Heart size is within normal limits. No pericardial effusion. The thoracic aorta is unre markable. No pathologic mediastinal adenopathy. Lungs: There are moderate to severe bilateral peribronchial infiltrates which have a peripheral and basilar predominance. No pleural effusion or pneumothorax. Bones: Degenerative changes in the spine with nothing acute. Upper abdomen: Limited imaging of the upper abdomen shows nothing acute. IMPRESSION: Positive for pulmonary emboli to the right lung as described. Diffuse bilateral infiltrates concerning for atypical pneumonia such as Covid. CRITICAL RESULT: Time of Discovery (LIMOUSINE RENTAL CLERK/CDT): 1255 Time of Communication (LIMOUSINE RENTAL CLERK/CDT): 1300 hours Licensed Practitioner Receiving Report: TJ Jay Read-Back Performed: Yes. Signer Name: Romulo Camarena Jr, MD Signed: 05/03/2021 2:02 PM Workstation Name: [id number]
[2021-05-03] MEDS ORDERED: HEPARIN 10,000 UNITS/10 ML VIAL IV PRN ×2 (17:07→18:09)
[2021-05-03 18:55] LABS: Hematocrit 38.5 % (30.3-42.9); Hemoglobin 11.7 gm/dl (10.1-14.3)
[2021-05-03] MEDS ORDERED: HEPARIN/ 0.45% NACL DRIP 25,000 UNIT/500 ML BAG IV SCH (19:00)
[2021-05-03 19:03] LABS: INR 0.88 (0.87-1.13)
[2021-05-03 19:04] LABS: Partial Thromboplastin Time 31.4 Sec. (24.2-36.6)
[2021-05-04] MEDS: oxyCODONE /ACETAMINOPHEN 5-325MG TAB PO PRN ×3 (04:11→17:27)
[2021-05-04] MEDS ORDERED: HEPARIN 10,000 UNITS/10 ML VIAL IV PRN (07:00)
[2021-05-04] MEDS: LORazepam 2 MG/ML VIAL IV PRN ×2 (10:45→17:30)
[2021-05-04] MEDS: FAMOTIDINE 20 MG TAB PO SCH ×2 (10:46→21:46)
[2021-05-04] MEDS: TIOTROPIUM 18 MCG CAP INHALATION IH SCH (11:21)
--- NOTE | 2021-05-04 13:37 | Progress Note ---
Assessment and Plan Assessment and plan: Acute hypoxic respiratory failure COVID-19 pneumonia. Patient reportedly with outpatient positive COVID test. Elevated D-dimer Bilateral pneumonia Acute kidney injury. 05/03/2021. Patient with significantly elevated D-dimer. We will check a CTA of the chest. Continue to wean oxygen to potential level of 2 L prior to discharge 05/04/2021. Patient with pulmonary emboli to the right lung. Patient initially started on heparin IV yesterday. We will transition to Lovenox for today and tomorrow then discharged with Eliquis likely Saturday or Saturday History Interval history: No new issues overnight. Hospitalist Physical - Constitutional Vitals: Temp Pulse Resp BP Pulse Ox 97.9 F 55 L 18 125/60 95 05/04/21 03:45 05/04/21 03:45 05/04/21 11:15 05/04/21 03:45 05/04/21 11:15 General appearance: Present: mild distress, well-nourished - EENT Eyes: Present: PERRL, EOM intact ENT: hearing intact, clear oral mucosa, dentition normal - Neck Neck: Present: supple, normal ROM - Respiratory Respiratory effort: normal Respiratory: bilateral: CTA - Cardiovascular Rhythm: regular Heart Sounds: Present: S1 & S2. Absent: gallop, rub - Extremities Extremities: no ischemia, No edema, Full ROM - Abdominal General gastrointestinal: soft, non-tender, non-distended, normal bowel sounds - Integumentary Integumentary: Present: clear, warm, dry - Neurologic Neurologic: CNII-XII intact, moves all extremities HEART Score - HEART Score Troponin: Troponin T < 0.010 ng/mL (0.00-0.029) 04/24/21 17:32 Results - Labs CBC & Chem 7: 05/03/21 18:09 04/30/21 06:05 Labs: Laboratory Last Values WBC 9.7 K/mm3 (4.5-11.0) 04/30/21 06:05 RBC 3.31 M/mm3 (3.65-5.03) L 04/30/21 06:05 Hgb 11.7 gm/dl (10.1-14.3) 05/03/21 18:09 Hct 38.5 % (30.3-42.9) 05/03/21 18:09 MCV 102 fl (79-97) H 04/30/21 06:05 MCH 35 pg (28-32) H 04/30/21 06:05 MCHC 34 % (30-34) 04/30/21 06:05 RDW 13.9 % (13.2-15.2) 04/30/21 06:05 Plt Count 436 K/mm3 (140-440) 05/03/21 18:09 Lymph % (Auto) 12.7 % (13.4-35.0) L 04/30/21 06:05 [place] % (Auto) 5.3 % (0.0-7.3) 04/30/21 06:05 Eos % (Auto) 0.3 % (0.0-4.3) 04/30/21 06:05 Baso % (Auto) 0.9 % (0.0-1.8) 04/30/21 06:05 Lymph # (Auto) 1.2 K/mm3 (1.2-5.4) 04/30/21 06:05 [place] # (Auto) 0.5 K/mm3 (0.0-0.8) 04/30/21 06:05 Eos # (Auto) 0.0 K/mm3 (0.0-0.4) 04/30/21 06:05 Baso # (Auto) 0.1 K/mm3 (0.0-0.1) 04/30/21 06:05 Seg Neutrophils % 80.8 % (40.0-70.0) H 04/30/21 06:05 Seg Neutrophils # 7.8 K/mm3 (1.8-7.7) H 04/30/21 06:05 PT 12.9 Sec. (12.2-14.9) 05/03/21 Unknown INR 0.88 (0.87-1.13) 05/03/21 Unknown APTT 31.4 Sec. (24.2-36.6) 05/03/21 Unknown D-Dimer > 79308 ng/mlDDU (0-234) H 04/24/21 17:32 Heparin Anti-Xa Level 0.10 U.I./ml (0.3-0.7) L 05/04/21 07:53 Sodium 139 mmol/L (137-145) 04/30/21 06:05 Potassium 4.5 mmol/L (3.6-5.0) 04/30/21 06:05 Chloride 106.0 mmol/L (98-107) 04/30/21 06:05 Carbon Dioxide 21 mmol/L (22-30) L 04/30/21 06:05 Anion Gap 17 mmol/L 04/30/21 06:05 BUN 19 mg/dL (7-17) H 04/30/21 06:05 Creatinine 1.0 mg/dL (0.6-1.2) 04/30/21 06:05 Estimated GFR 58 ml/min 04/30/21 06:05 BUN/Creatinine Ratio 19 % 04/30/21 06:05 Glucose 147 mg/dL (65-100) H 04/30/21 06:05 Calcium 8.4 mg/dL (8.4-10.2) 04/30/21 06:05 Ferritin 380.7 ng/mL (10.0-200.0) H 04/24/21 17:32 Total Bilirubin 0.30 mg/dL (0.1-1.2) 04/25/21 04:44 AST 32 units/L (5-40) 04/25/21 04:44 ALT 72 units/L (7-56) H 04/25/21 04:44 Alkaline Phosphatase 99 units/L (35-129) 04/25/21 04:44 Lactate Dehydrogenase 408 units/L (91-180) H 04/24/21 17:32 Troponin T < 0.010 ng/mL (0.00-0.029) 04/24/21 17:32 C-Reactive Protein 8.80 mg/dL (0.00-1.30) H 04/24/21 17:32 Total Protein 7.5 g/dL (6.3-8.2) 04/25/21 04:44 Albumin 3.4 g/dL (3.9-5) L 04/25/21 04:44 Albumin/Globulin Ratio 0.8 % 04/25/21 04:44 Procalcitonin 0.05 ng/mL (<0.15) 04/24/21 17:32 Coronavirus (PCR) Negative (Negative) 04/25/21 Unknown Ruiz/IV: Voiding Method Toilet Active Medications - Current Medications Current Medications: Generic Name Dose Route Start Last Admin Trade Name Freq PRN Reason Stop Dose Admin Acetaminophen 650 mg 04/24/21 21:47 Acetaminophen 325 Mg Tab PO Q4H PRN Pain MILD(1-3)/Fever >100.5/RONDON Enoxaparin Sodium 130 mg 05/04/21 22:00 Enoxaparin 100 Mg/1 Ml Inj 1 mg/kg (130 mg) SUB-Q Q12HR [facility] Protocol Famotidine 20 mg 04/24/21 22:00 05/04/21 10:46 Famotidine 20 Mg Tab PO 20 mg BID TOM Administration Heparin Sodium (Porcine) 5,000 unit 05/04/21 07:00 Heparin 10,000 Units/10 Ml Vial IV Q6H PRN Anti-Xa Assay < 0.1 units/ml Lorazepam 0.5 mg 04/27/21 16:53 05/04/21 10:45 Lorazepam 2 Mg/Ml Vial IV 0.5 mg Q4H PRN Administration Anxiety Metoclopramide HCl 10 mg 04/24/21 21:49 Metoclopramide 10 Mg/2 Ml Inj IV Q6H PRN Nausea And Vomiting Morphine Sulfate 2 mg 04/24/21 21:49 04/28/21 12:52 Morphine 2 Mg/1 Ml Inj IV 2 mg Q4H PRN Administration Pain, Moderate (4-6) Nicotine 14 mg 05/04/21 12:00 Nicotine 14 Mg/24 Hr Patch TD QDAY [facility] Ondansetron HCl 4 mg 04/24/21 21:47 Ondansetron 4 Mg/2 Ml Inj IV Q8H PRN Nausea And Vomiting Oxycodone/Acetaminophen 1 tab 04/24/21 21:49 05/04/21 10:46 Oxycodone /Acetaminophen 5-325mg Tab PO 1 tab Q6H PRN Administration Pain, Moderate (4-6) Sodium Chloride 10 ml 04/24/21 22:00 05/04/21 10:46 Sodium Chloride 0.9% 10 Ml Flush Syringe IV 10 ml BID [facility] Administration Sodium Chloride 10 ml 04/24/21 21:47 05/03/21 15:42 Sodium Chloride 0.9% 10 Ml Flush Syringe IV 10 ml PRN PRN Administration LINE FLUSH Tiotropium [place] 1 puff 04/25/21 09:00 05/04/21 11:21 Tiotropium 18 Mcg Cap Inhalation IH Not Given Q24HRT [facility] Nutrition/Malnutrition Assess - Dietary Evaluation Nutrition/Malnutrition Findings: Nutrition Notes Start: 04/25/21 15:59 Freq: Status: Active Protocol: Document 05/01/21 16:12 EUSEBIA (Rec: 05/01/21 16:15 EUSEBIA [id number]) Nutrition Notes Initial or Follow up Reassessment Current Diagnosis Acute Kidney Injury,COPD, Respiratory Failure Other Pertinent Diagnosis [id number] syndrome, B pneumonia, SIRS, Chronic moderate malnutrition. Current Diet Regular Diet (since B 04/25), D Suppl (L 04/25). Labs/Tests 04/30: CO2 21, BUN 19, Glu 147 . Pertinent Medications 05/01: Nutritionally unremarkable. Height 5 ft 8 in Weight 121 kg [place] Body Weight (kg) 63.63 BMI 40.5 Weight change and time frame 1.26 Kg body weight gained in 1 week reported. Weight Status Morbidly Obese Subjective/Other Information RD consult for routine F/U on Dietary assessment. Pt's PO intake of meals has been Good (100%), according to ADL notes. Dietary Supplements discontinued. 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 Pt to be discharged if home 3L O2 nasal cannula can be arranged, according to Progress notes. Percent of energy/protein needs met: Prescribed Regular Diet provides for energy/protein needs (2,289 Kcal/89 g) during LOS. Burn Absent Trauma Absent GI Symptoms None Food Allergy No Skin Integrity/Comment Clear, warm, dry. Current % PO Good (75-100%) Minimum of two criteria No #1 Nutrition Diagnosis Inadequate protein-energy intake Comments: Pt's PO intake of meals has been Good (100%), according to ADL notes. Diagnosis Progress(for reassessment Resolved documentation) Is patient on ventilator? No Is Patient Ambulatory and/or Out of Bed Yes REE-([place]-ambulatory/OOB) [ 2409.550 NUTR.MSJOOB] Kcal/Kg value to use for calculation 13 Approximate Energy Requirements Using 1573 kcal/Kg Calculation Used for Recommendations Kcal/kg Additional Notes 15-20 Kcal/Kg ABW (70-80% of EEN). Protein: 1.3 g/Kg; 121 g/day. Fluids: 1 ml/Kcal, or as per MD. Nutrition Intervention Change Diet Order: Continue Regular Diet. Add Supplement/Snack (indicate name/kcal d/c. /protein ) Goal #1 Maintain body weight within +/ -3% of admission body weight during LOS. Follow-Up By: 05/08/21 Additional Comments Continue monitoring food tolerance, %PO intake of meals , and BM.
[2021-05-04] MEDS: NICOTINE 14 MG/24 HR PATCH TD SCH (15:00)
[2021-05-04] MEDS ORDERED: POLYETHYLENE GLYCOL 3350 17 GM POWDER PO PRN (17:24)
[2021-05-04] MEDS: ENOXAPARIN 150 MG/1 ML INJ SUB-Q SCH (21:45)
[2021-05-04] MEDS ORDERED: ENOXAPARIN 100 MG/1 ML INJ SUB-Q SCH (22:00)
[2021-05-05] MEDS: oxyCODONE /ACETAMINOPHEN 5-325MG TAB PO PRN ×4 (01:14→22:33)
[2021-05-05] MEDS: LORazepam 2 MG/ML VIAL IV PRN ×2 (01:14→10:37)
[2021-05-05 06:19] LABS: Hematocrit 40.2 % (30.3-42.9); Hemoglobin 12.9 gm/dl (10.1-14.3)
[2021-05-05] MEDS: TIOTROPIUM 18 MCG CAP INHALATION IH SCH (08:10)
[2021-05-05] MEDS: ENOXAPARIN 150 MG/1 ML INJ SUB-Q SCH ×2 (10:36→22:33)
[2021-05-05] MEDS: FAMOTIDINE 20 MG TAB PO SCH ×2 (10:37→22:33)
[2021-05-05] MEDS: NICOTINE 14 MG/24 HR PATCH TD SCH (10:37)
--- NOTE | 2021-05-05 11:34 | Progress Note ---
Assessment and Plan Assessment and plan: Acute hypoxic respiratory failure COVID-19 pneumonia. Patient reportedly with outpatient positive COVID test. Elevated D-dimer Bilateral pneumonia Acute kidney injury. 05/03/2021. Patient with significantly elevated D-dimer. We will check a CTA of the chest. Continue to wean oxygen to potential level of 2 L prior to discharge 05/04/2021. Patient with pulmonary emboli to the right lung. Patient initially started on heparin IV yesterday. We will transition to Lovenox for today and tomorrow then discharged with Eliquis likely Saturday or Saturday05/05/2021. Continue Lovenox for today and transition to echo Eliquis tomorrow for discharge History Interval history: No new issues overnight. Hospitalist Physical - Constitutional Vitals: Temp Pulse Resp BP Pulse Ox 97.4 F L 71 18 132/85 98 05/05/21 03:29 05/05/21 08:10 05/05/21 08:10 05/05/21 03:29 05/05/21 08:23 General appearance: Present: mild distress, well-nourished - EENT Eyes: Present: PERRL, EOM intact ENT: hearing intact, clear oral mucosa, dentition normal - Neck Neck: Present: supple, normal ROM - Respiratory Respiratory effort: normal Respiratory: bilateral: CTA - Cardiovascular Rhythm: regular Heart Sounds: Present: S1 & S2. Absent: gallop, rub - Extremities Extremities: no ischemia, No edema, Full ROM - Abdominal General gastrointestinal: soft, non-tender, non-distended, normal bowel sounds - Integumentary Integumentary: Present: clear, warm, dry - Neurologic Neurologic: CNII-XII intact, moves all extremities HEART Score - HEART Score Troponin: Troponin T < 0.010 ng/mL (0.00-0.029) 04/24/21 17:32 Results - Labs CBC & Chem 7: 05/05/21 05:20 04/30/21 06:05 Labs: Laboratory Last Values WBC 9.7 K/mm3 (4.5-11.0) 04/30/21 06:05 RBC 3.31 M/mm3 (3.65-5.03) L 04/30/21 06:05 Hgb 12.9 gm/dl (10.1-14.3) 05/05/21 05:20 Hct 40.2 % (30.3-42.9) 05/05/21 05:20 MCV 102 fl (79-97) H 04/30/21 06:05 MCH 35 pg (28-32) H 04/30/21 06:05 MCHC 34 % (30-34) 04/30/21 06:05 RDW 13.9 % (13.2-15.2) 04/30/21 06:05 Plt Count 437 K/mm3 (140-440) 05/05/21 05:20 Lymph % (Auto) 12.7 % (13.4-35.0) L 04/30/21 06:05 [place] % (Auto) 5.3 % (0.0-7.3) 04/30/21 06:05 Eos % (Auto) 0.3 % (0.0-4.3) 04/30/21 06:05 Baso % (Auto) 0.9 % (0.0-1.8) 04/30/21 06:05 Lymph # (Auto) 1.2 K/mm3 (1.2-5.4) 04/30/21 06:05 [place] # (Auto) 0.5 K/mm3 (0.0-0.8) 04/30/21 06:05 Eos # (Auto) 0.0 K/mm3 (0.0-0.4) 04/30/21 06:05 Baso # (Auto) 0.1 K/mm3 (0.0-0.1) 04/30/21 06:05 Seg Neutrophils % 80.8 % (40.0-70.0) H 04/30/21 06:05 Seg Neutrophils # 7.8 K/mm3 (1.8-7.7) H 04/30/21 06:05 PT 12.9 Sec. (12.2-14.9) 05/03/21 Unknown INR 0.88 (0.87-1.13) 05/03/21 Unknown APTT 31.4 Sec. (24.2-36.6) 05/03/21 Unknown D-Dimer > 81836 ng/mlDDU (0-234) H 04/24/21 17:32 Heparin Anti-Xa Level 0.10 U.I./ml (0.3-0.7) L 05/04/21 07:53 Sodium 139 mmol/L (137-145) 04/30/21 06:05 Potassium 4.5 mmol/L (3.6-5.0) 04/30/21 06:05 Chloride 106.0 mmol/L (98-107) 04/30/21 06:05 Carbon Dioxide 21 mmol/L (22-30) L 04/30/21 06:05 Anion Gap 17 mmol/L 04/30/21 06:05 BUN 19 mg/dL (7-17) H 04/30/21 06:05 Creatinine 1.0 mg/dL (0.6-1.2) 04/30/21 06:05 Estimated GFR 58 ml/min 04/30/21 06:05 BUN/Creatinine Ratio 19 % 04/30/21 06:05 Glucose 147 mg/dL (65-100) H 04/30/21 06:05 Calcium 8.4 mg/dL (8.4-10.2) 04/30/21 06:05 Ferritin 380.7 ng/mL (10.0-200.0) H 04/24/21 17:32 Total Bilirubin 0.30 mg/dL (0.1-1.2) 04/25/21 04:44 AST 32 units/L (5-40) 04/25/21 04:44 ALT 72 units/L (7-56) H 04/25/21 04:44 Alkaline Phosphatase 99 units/L (35-129) 04/25/21 04:44 Lactate Dehydrogenase 408 units/L (91-180) H 04/24/21 17:32 Troponin T < 0.010 ng/mL (0.00-0.029) 04/24/21 17:32 C-Reactive Protein 8.80 mg/dL (0.00-1.30) H 04/24/21 17:32 Total Protein 7.5 g/dL (6.3-8.2) 04/25/21 04:44 Albumin 3.4 g/dL (3.9-5) L 04/25/21 04:44 Albumin/Globulin Ratio 0.8 % 04/25/21 04:44 Procalcitonin 0.05 ng/mL (<0.15) 04/24/21 17:32 Coronavirus (PCR) Negative (Negative) 04/25/21 Unknown Ruiz/IV: Voiding Method Toilet Active Medications - Current Medications Current Medications: Generic Name Dose Route Start Last Admin Trade Name Freq PRN Reason Stop Dose Admin Acetaminophen 650 mg 04/24/21 21:47 Acetaminophen 325 Mg Tab PO Q4H PRN Pain MILD(1-3)/Fever >100.5/RONDON Enoxaparin Sodium 130 mg 05/04/21 22:00 05/05/21 10:36 Enoxaparin 150 Mg/1 Ml Inj SUB-Q 130 mg Q12HR TOM Administration Famotidine 20 mg 04/24/21 22:00 05/05/21 10:37 Famotidine 20 Mg Tab PO 20 mg BID TOM Administration Heparin Sodium (Porcine) 5,000 unit 05/04/21 07:00 Heparin 10,000 Units/10 Ml Vial IV Q6H PRN Anti-Xa Assay < 0.1 units/ml Lorazepam 0.5 mg 04/27/21 16:53 05/05/21 10:37 Lorazepam 2 Mg/Ml Vial IV 0.5 mg Q4H PRN Administration Anxiety Metoclopramide HCl 10 mg 04/24/21 21:49 Metoclopramide 10 Mg/2 Ml Inj IV Q6H PRN Nausea And Vomiting Morphine Sulfate 2 mg 04/24/21 21:49 04/28/21 12:52 Morphine 2 Mg/1 Ml Inj IV 2 mg Q4H PRN Administration Pain, Moderate (4-6) Nicotine 14 mg 05/04/21 12:00 05/05/21 10:37 Nicotine 14 Mg/24 Hr Patch TD 14 mg QDAY TOM Administration Ondansetron HCl 4 mg 04/24/21 21:47 Ondansetron 4 Mg/2 Ml Inj IV Q8H PRN Nausea And Vomiting Oxycodone/Acetaminophen 1 tab 04/24/21 21:49 05/05/21 10:37 Oxycodone /Acetaminophen 5-325mg Tab PO 1 tab Q6H PRN Administration Pain, Moderate (4-6) Polyethylene Glycol 17 gm 05/04/21 17:24 Polyethylene Glycol 3350 17 Gm Powder PO BID PRN Constipation Sodium Chloride 10 ml 04/24/21 22:00 05/05/21 10:37 Sodium Chloride 0.9% 10 Ml Flush Syringe IV 10 ml BID TOM Administration Sodium Chloride 10 ml 04/24/21 21:47 05/03/21 15:42 Sodium Chloride 0.9% 10 Ml Flush Syringe IV 10 ml PRN PRN Administration LINE FLUSH Tiotropium [place] 1 puff 04/25/21 09:00 05/05/21 08:10 Tiotropium 18 Mcg Cap Inhalation IH 1 puff Q24HRT TOM Administration Nutrition/Malnutrition Assess - Dietary Evaluation Nutrition/Malnutrition Findings: Nutrition Notes Start: 04/25/21 15:59 Freq: Status: Active Protocol: Document 05/01/21 16:12 EUSEBIA (Rec: 05/01/21 16:15 [email or web address] [id number]) Nutrition Notes Initial or Follow up Reassessment Current Diagnosis Acute Kidney Injury,COPD, Respiratory Failure Other Pertinent Diagnosis 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 Current Diet Regular Diet (since B 04/25), D Suppl (L 04/25). Labs/Tests 04/30: CO2 21, BUN 19, Glu 147 . Pertinent Medications 05/01: Nutritionally unremarkable. Height 5 ft 8 in Weight 121 kg [place] Body Weight (kg) 63.63 BMI 40.5 Weight change and time frame 1.26 Kg body weight gained in 1 week reported. Weight Status Morbidly Obese Subjective/Other Information RD consult for routine F/U on Dietary assessment. Pt's PO intake of meals has been Good (100%), according to ADL notes. Dietary Supplements discontinued. 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 Pt to be discharged if home 3L O2 nasal cannula can be arranged, according to Progress notes. Percent of energy/protein needs met: Prescribed Regular Diet provides for energy/protein needs (2,289 Kcal/89 g) during LOS. Burn Absent Trauma Absent GI Symptoms None Food Allergy No Skin Integrity/Comment Clear, warm, dry. Current % PO Good (75-100%) Minimum of two criteria No #1 Nutrition Diagnosis Inadequate protein-energy intake Comments: Pt's PO intake of meals has been Good (100%), according to ADL notes. Diagnosis Progress(for reassessment Resolved documentation) Is patient on ventilator? No Is Patient Ambulatory and/or Out of Bed Yes REE-([place]-St. Jeor-ambulatory/OOB) [ 4339.550 [id number]] Kcal/Kg value to use for calculation 13 Approximate Energy Requirements Using 1573 kcal/Kg Calculation Used for Recommendations Kcal/kg Additional Notes 15-20 Kcal/Kg ABW (70-80% of EEN). Protein: 1.3 g/Kg; 121 g/day. Fluids: 1 ml/Kcal, or as per MD. Nutrition Intervention Change Diet Order: Continue Regular Diet. Add Supplement/Snack (indicate name/kcal d/c. /protein ) Goal #1 Maintain body weight within +/ -3% of admission body weight during LOS. Follow-Up By: 05/08/21 Additional Comments Continue monitoring food tolerance, %PO intake of meals , and BM.
[2021-05-05] MEDS: ALPRAZolam 0.25 MG TAB PO PRN (16:30)
[2021-05-06] MEDS: ALPRAZolam 0.25 MG TAB PO PRN ×2 (02:32→10:39)
--- NOTE | 2021-05-06 09:22 | Discharge Summary ---
Providers - Providers Date of Admission: 04/24/21 18:53 Date of discharge: 05/06/21 Attending physician: JAMEL WIGGINS Primary care physician: CLINICAL MOLECULAR GENETICIST Hospitalization Reason for admission: SOB Condition: Serious Hospital course: 56-year-old female who presented through the emergency department with chief complaint of dyspnea. The patient was admitted with diagnosis of acute hypoxic respiratory failure, COVID-19 pneumonia, and acute kidney injury. Patient reportedly had COVID-19 pneumonia test that was done as an outpatient that was found to be positive. However, COVID testing done here on 04/25 was found to be negative. Patient was also noted to have elevated D-dimer and was greater than 10,000. CTA of the chest was obtained and patient was found to have a pulmonary embolus to the right lung. Patient was initially started on heparin IV then transition to Lovenox subcutaneously and now will be discharged home with Ammy devon daily. The patient did qualify for home oxygen and the oxygen tanks were delivered to home address and her spouse will bring a oxygen tank to hospital to transport her home when pt is ready for discharge. Dedicated discharge time 32 minutes Disposition: 30 STILL A PATIENT Final Discharge Diagnosis (Prints w/discharge instructions): Acute hypoxic respiratory failure, COVID-19 pneumonia, Core Measure Documentation - Palliative Care Palliative Care/ Comfort Measures: Not Applicable - Core Measures Any of the following diagnoses?: none Exam - Constitutional Vitals: Temp Pulse Resp BP Pulse Ox 97.6 F 67 18 116/67 100 05/06/21 04:15 05/06/21 04:15 05/06/21 04:15 05/06/21 04:15 05/06/21 08:12 General appearance: Present: no acute distress, well-nourished - EENT Eyes: Present: PERRL ENT: hearing intact, clear oral mucosa - Neck Neck: Present: supple, normal ROM - Respiratory Respiratory effort: normal Respiratory: bilateral: CTA - Cardiovascular Heart Sounds: Present: S1 & S2. Absent: rub, click - Extremities Extremities: pulses symmetrical, No edema Peripheral Pulses: within normal limits - Abdominal General gastrointestinal: Present: soft, non-tender, non-distended, normal bowel sounds Female genitourinary: Present: normal - Integumentary Integumentary: Present: clear, warm, dry - Musculoskeletal Musculoskeletal: gait normal, strength equal bilaterally - Psychiatric Psychiatric: appropriate mood/affect, intact judgment & insight - Neurologic Neurologic: CNII-XII intact, moves all extremities Plan Activity: advance as tolerated Weight Bearing Status: Weight Bear as Tolerated Diet: regular Prescriptions: Apixaban [Eliquis] 5 mg PO BID 360 Days Nicotine [Habitrol] 14 mg TD QDAY 30 Days patch oxyCODONE /ACETAMINOPHEN [Percocet 5/325 mg] 1 tab PO Q6H PRN #10 tablet PRN Reason: Pain, Moderate (4-6) ALPRAZolam [Xanax TAB] 0.25 mg PO Q8H PRN #9 tablet PRN Reason: Anxiety
[2021-05-06] MEDS: TIOTROPIUM 18 MCG CAP INHALATION IH SCH (10:02)
[2021-05-06] MEDS: oxyCODONE /ACETAMINOPHEN 5-325MG TAB PO PRN (10:39)
[2021-05-06] MEDS: NICOTINE 14 MG/24 HR PATCH TD SCH (10:39)
[2021-05-06] MEDS: FAMOTIDINE 20 MG TAB PO SCH (10:39)
[2021-05-06] MEDS: ENOXAPARIN 150 MG/1 ML INJ SUB-Q SCH (10:40)
[2021-05-06 12:18] VITALS: BP 137/73
== END 2021-05-06 15:00 | disposition home or self-care (01) | DRG 193 ==
LOC: ED 14:38 → 3A 18:53 → 4A 04-26 16:33
PROVIDERS: ADMIT Internal Medicine; ATTEND Hospitalist
DX: J18.9 Pneumonia, unspecified organism (principal); J96.01 Acute respiratory failure with hypoxia; N17.0 Acute kidney failure with tubular necrosis; R65.10 Systemic inflammatory response syndrome (SIRS) of non-infectious origin without acute organ dysfunction; E44.0 Moderate protein-calorie malnutrition; Z68.41 Body mass index [BMI] 40.0-44.9, adult; Z20.822 Contact with and (suspected) exposure to COVID-19; Z88.2 Allergy status to sulfonamides; Z88.8 Allergy status to other drugs, medicaments and biological substances; F17.200 Nicotine dependence, unspecified, uncomplicated; J43.9 Emphysema, unspecified
CPT/HCPCS: 36415; 71045; 71275; 80048; 80053; 82728; 83615; 84145; 84484; 85014; 85018; 85025; 85049; 85379; 85520; 85610; 85730; 86140; 87040; 93005; 94760; G0378; J3490; Q0162; J0610; J0696; J1100; J1644; J1650; J2060; J2270; J7030; J8540; Q9967; U0003